=== PATIENT | female | born 1965 | race Caucasian/White ===

== ENCOUNTER → 2017-09-10 | Outpatient (REF) | payer OTHER | LOC: M LAB REF 11:55 | DX: J11.1 Influenza due to unidentified influenza virus with other respiratory manifestations (principal) | CPT/HCPCS: 87633 ==

== ENCOUNTER 2017-11-27 16:37 | Emergency (ER) | payer OTHER ==
[2017-11-27] MEDS: KETOROLAC TROMETHAMINE 10 MG TAB PO (18:39)
== END 2017-11-27 18:53 | disposition home or self-care (01) ==
LOC: M ED 16:37
DX: M54.5 Low back pain (principal); S16.1XXA Strain of muscle, fascia and tendon at neck level, initial encounter; X58.XXXA Exposure to other specified factors, initial encounter; Y92.89 Other specified places as the place of occurrence of the external cause; F17.200 Nicotine dependence, unspecified, uncomplicated; Z87.828 Personal history of other (healed) physical injury and trauma
CPT/HCPCS: 99283

== ENCOUNTER 2017-12-05 13:46 | Emergency (ER) | payer OTHER ==
[2017-12-05] MEDS: traMADol 50 MG TAB PO (14:45)
[2017-12-05] MEDS: METHOCARBAMOL 500 MG TAB PO (14:45)
== END 2017-12-05 14:59 | disposition home or self-care (01) ==
LOC: M ED 13:46
DX: S39.012A Strain of muscle, fascia and tendon of lower back, initial encounter (principal); X50.1XXA Overexertion from prolonged static or awkward postures, initial encounter; Y92.89 Other specified places as the place of occurrence of the external cause; M54.9 Dorsalgia, unspecified; G89.29 Other chronic pain; Z79.899 Other long term (current) drug therapy; Z79.1 Long term (current) use of non-steroidal anti-inflammatories (NSAID)
CPT/HCPCS: 99282

== ENCOUNTER → 2018-04-14 | Outpatient (REF) | payer OTHER ==
[2018-04-14 11:14] LABS: HEMATOCRIT 41.7 % (36.0-47.0); HEMOGLOBIN 13.9 g/dl (12.0-15.5); MEAN CORPUSCULAR HEMOGLOBIN 32.2 pg (27.0-33.0); MEAN CORPUSCULAR HGB CONC 33.3 g/dl (32.0-36.5); MEAN CORPUSCULAR VOLUME 96.5 fl (80.0-96.0); PLATELET COUNT, AUTOMATED 234 10^3/uL (150-450); RED BLOOD COUNT 4.32 10^6/uL (4.00-5.40); RED CELL DISTRIBUTION WIDTH 12.1 % (11.5-14.5); WHITE BLOOD COUNT 6.9 10^3/uL (4.0-10.0)
[2018-04-14 11:50] LABS: ALBUMIN 4.1 GM/DL (3.2-5.2); ALBUMIN/GLOBULIN RATIO 1.41 (1.00-1.93); ALKALINE PHOSPHATASE 85 U/L (45-117); ALT/SGPT 17 U/L (12-78); ANION GAP 5 MEQ/L (8-16); AST/SGOT 12 U/L (7-37); BILIRUBIN,TOTAL 0.4 MG/DL (0.2-1.0); BLOOD UREA NITROGEN 16 MG/DL (7-18); CALCIUM LEVEL 8.7 MG/DL (8.5-10.1); CARBON DIOXIDE LEVEL 29 MEQ/L (21-32); CHLORIDE LEVEL 108 MEQ/L (98-107); CHOLESTEROL LEVEL 234 MG/DL (<200); CHOLESTEROL RISK RATIO 4.875 (<5); CREATININE FOR GFR 0.92 MG/DL (0.55-1.30); FREE T4 0.84 NG/DL (0.76-1.46); GLOMERULAR FILTRATION RATE > 60.0 (>51); GLUCOSE, FASTING 75 MG/DL (70-100); HDL CHOLESTEROL 48 MG/DL (>40); LDL CHOLESTEROL 135 MG/DL (<100); NON-HDL-C 186 MG/DL; POTASSIUM SERUM 4.3 MEQ/L (3.5-5.1); SODIUM LEVEL 142 MEQ/L (136-145); TRIGLYCERIDES LEVEL 254 MG/DL (<150)
== END ==
LOC: M LABDRAW1 10:52
DX: E78.2 Mixed hyperlipidemia (principal); F41.9 Anxiety disorder, unspecified; Z72.0 Tobacco use

== ENCOUNTER → 2018-05-14 | Outpatient (CLI) | payer OTHER | LOC: M PAIN 11:00 | DX: M46.1 Sacroiliitis, not elsewhere classified (principal); M51.26 Other intervertebral disc displacement, lumbar region; M54.17 Radiculopathy, lumbosacral region; F41.9 Anxiety disorder, unspecified; F17.210 Nicotine dependence, cigarettes, uncomplicated; Z98.1 Arthrodesis status; Z79.899 Other long term (current) drug therapy; Z90.49 Acquired absence of other specified parts of digestive tract | CPT/HCPCS: G0463 ==

== ENCOUNTER → 2018-07-15 | Outpatient (CLI) | payer OTHER ==
[~2018-07-15] MED LIST: ALEV220C2 PO; ALLEVE OR; FLEXERIL PO; KETO10TAB PO; LIDO1DIS2 TD; NAPR-239 OR; NAPR-885; ROBA500T PO; TRAM50TA2 OR; TRAM50TA2 PO; ZOLO50TA OR; ZOLP10TA2
--- NOTE | 2018-08-02 23:28 | ECWPNPC ---
PATIENT NAME: SHANELL MENDIETA : 1965 GENDER: FEMALE VISIT DATE: 07/15/2018 DISCHARGE DATE: 07/15/18 174 VISIT LOCKED DATE TIME: PHYSICIAN: DONNA GRIGGS MD RESOURCE: DONNA GRIGGS MD REASON FOR APPOINTMENT 1. W/C BACK HISTORY OF PRESENT ILLNESS HISTORY OF PRESENT ILLNESS: PAIN THE PATIENT DESCRIBES THE PAIN... 53 YEAR OLD FEMALE PATIENT WITH A HISTORY OF CHRONIC BACK PAIN. THE PATIENT DESCRIBES THE PAIN SHARP AND CONTINUOUS WITH A PAIN SCORE OF 6-10/10 DEPENDING ON PHYSICAL ACTIVITY. 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 THE PATIENT STATES THAT HER PAIN IS MAINLY LOCATED AT HER RIGHT LOW BACK AREA. THE PATIENT SAYS SHE HAS SEVERAL SUPPORTS FOR HER BACK IN HER SEAT ON THE BUS AND IN HER CAR. THE PATIENT STATES THAT SHE HAS DIFFICULTY DOING DAILY ACTIVITIES SUCH CLEANING, WORKING, GETTING GROCERIES, AND STANDING UP DUE TO THIS PAIN. PATIENT DENIES UNEXPLAINABLE WEIGHT LOSS, FEVER, CHILLS, NEW CHANGES ON HER URINARY OR BOWEL CONTROL. FALL RISK SCREENING: SCREENING :NO FALLS IN THE PAST YEAR CURRENT MEDICATIONS TAKING LIDOCAINE 5 % PATCH 1 PATCH TO SKIN REMOVE AFTER 12 HOURS EXTERNALLY ONCE A DAY NEEDED TAKING CYCLOBENZAPRINE HCL 10 MG TABLET 1 TABLET ORALLY TID PPRN TAKING NAPROXEN 500 MG TABLET 1 TABLET NEEDED ORALLY EVERY 12 HRS TAKING BACLOFEN 10 MG TABLET 1 TABLET WITH FOOD OR MILK ORALLY DAILY TAKING ZOLOFT 50 MG TABLET 1 TABLET ORALLY ONCE A DAY TAKING AMBIEN 10 MG TABLET 1 TABLET AT BEDTIME NEEDED ORALLY BEFORE BEDTIME TAKING NICOTINE POLACRILEX 2 MG GUM 1 PIECE NEEDED INSTEAD OF SMOKING MOUTH/THROAT 5 TIMES A DAY MEDICATION LIST REVIEWED AND RECONCILED WITH THE PATIENT PAST MEDICAL HISTORY ANXIETY TOBACCO USE LOW BACK PAIN RELATED TO WORKER'S COMP. INJURY JUMPED OVER A PUDDLE IN THE BUS GARAGE MOVED JUST WRONG C PAIN EVER SINCE DOES PT, SEES SOS CERVICAL SPINE FUSION IN 2011 ALLERGIES N.K.D.A. SURGICAL HISTORY C4-C5 FUSION 2011 APPENDECTOMY 1993 C SECTION 1986 FAMILY HISTORY FATHER: ALIVE, DIAGNOSED WITH DIABETES, HEART DISEASE MOTHER: ALIVE 1 SON(S) , 2 DAUGHTER(S) - HEALTHY. PATERNAL AUNTS HAD BREAST CANCERSON HAS RHEUMATOID ARTHRITIS, THYROID ISSUESDAUGHTER THYROID DISEASE. SOCIAL HISTORY GENERAL: TOBACCO USE ARE YOU A:CURRENT SMOKER ARE YOU INTERESTED IN QUITTING?READY TO QUIT PATIENT STATES CUTTING BACK ON CIGARETTES, USING VAPOR AND NICOTINE GUM TO HELP QUIT. COUNSELED THE PATIENT ON TOBACCO USE, CESSATION [id number]/19/2018 HOW MANY CIGARETTES A DAY DO YOU SMOKE?5 OR LESS HOW SOON AFTER YOU WAKE UP DO YOU SMOKE YOUR FIRST CIGARETTE?6-30 MIN HOW OFTEN DO YOU SMOKE CIGARETTES?EVERY DAY PATIENT COUNSELED ON THE DANGERS OF TOBACCO USE AND URGED TO QUIT:07/15/2018 VAPORYES LUNG CANCER SCREENING SMOKING STATUS:CURRENT SMOKER BMI CARE GOAL FOLLOW-UP ABOVE NORMAL BMI FOLLOW-UPDIETARY MANAGEMENT EDUCATION, GUIDANCE, AND COUNSELING, DIETARY NEEDS EDUCATION ALCOHOL SCREENING DID YOU HAVE A DRINK CONTAINING ALCOHOL IN THE PAST YEAR?NO POINTS0 INTERPRETATIONNEGATIVE RECREATIONAL DRUG USE DRUG USE?NO CAFFEINE 2-5/DAY COFFEE, SODA. SEXUAL HX HAD SEX IN THE LAST 12 MONTHS (VAGINAL, ORAL, OR ANAL)?YES WITHMEN ONLY USE PROTECTION?NO HAVE YOU EVER HAD AN STD?NO LMP:MENOP HIV / HEP-C SCREENING HIV TEST OFFERED TO PATIENT:NO DECLINED HEP-C TEST OFFERED TO PATIENT:NO DECLINED JEW NO TEMPLE BELIEFS THAT WOULD IMPACT HEALTH CARE. LANGUAGE ISRAELI. 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 DIET: REGULAR. EXERCISE: ACTIVE THROUGH WORK AND AT HOME. MARITAL STATUS: .. OTHERS AT HOME: BOYFRIEND. PAIN CLINIC PFS, CLERGY, PUBLIC HEALTH REFERRALS HAS THE PATIENT BEEN EDUCATED REGARDING HIS/HER PLAN OF CARE?YES HAS THE PATIENT BEEN EDUCATED REGARDING PAIN, THE RISK FOR PAIN, THE IMPORTANCE OF EFFECTIVE PAIN MANAGEMENT, AND THE PAIN ASSESSMENT PROCESS?YES ADVANCE DIRECTIVE ADVANCE DIRECTIVE DISCUSSED WITH PATIENT:YES HCP - JUDY BROTHERS (DAUGHTER) REVIEWED WITH PATIENT 05/14/18 1142 JSREVIEWED WITH PATIENT 07/15/18 1625 JS. HOSPITALIZATION/MAJOR DIAGNOSTIC PROCEDURE CHILDBIRTH X2 REVIEW OF SYSTEMS REVIEWED BY: PROVIDER: DONNA GRIGGS MD . CONSTITUTIONAL: ANY CHANGE IN YOUR MEDICAL CONDITION? NO . CHILLS NO . FEVER NO . INFECTION: DO YOU HAVE NEW INFECTIONS? NO . DO YOU HAVE HISTORY OF MRSA? NO . MUSCULOSKELETAL: ANY NEW PATTERNS OF PAIN OR NUMBNESS? YES, PATIENT STATES A NEW SHARP PAIN TO LOWER BACK. STATES IT STARTED YESTERDAY MORNING WHEN GETTING OUT OF BED. STATES IT FELT LIKE A LIGHTENING BOLT. THE PAIN WAS SO SEVERE THAT IT BROUGHT HER TO HER KNEES . GASTROENTEROLOGY: ANY NEW CHANGE IN BOWEL CONTROL? NO . GENITOURINARY: ANY NEW CHANGE IN BLADDER CONTROL? NO . IS THERE A CHANCE YOU COULD BE ? NO . HEMATOLOGY/LYMPH: DO YOU TAKE ANY BLOOD THINNERS? (FOR EXAMPLE- COUMADIN, PLAVIX, AGGRENOX, PLATEL, PRADAXA, OR XARELTO) NO . WHEN WAS YOUR LAST DOSE? DATE: TIME: . NEUROLOGY: HAVE YOU FALLEN IN THE PAST 6 MONTHS? NO . ANY NEW EXTREMITY NUMBNESS OR WEAKNESS? NO . CARDIOLOGY: DO YOU HAVE A PACEMAKER OR DEFIBRILLATOR? NO . RESPIRATORY: HAVE YOU BEEN SICK IN THE PAST WEEK? NO . FEVER NO . FLU LIKE SYMPTOMS? NO . COUGH NO . INTEGUMENTARY: DO YOU HAVE ANY RASHES OR OPEN SORES? NO . ALLERGIC/IMMUNO: ARE YOU ALLERGIC TO SHELLFISH OR IV DYE? NO . ANY NEW ALLERGIES? NO . PSYCHIATRIC: DO YOU HAVE THOUGHTS OF HURTING YOURSELF OR SOMEONE ELSE? NO . ARE YOU ABUSED, NEGLECTED, OR IN AN UNSAFE ENVIRONMENT? NO . ENDOCRINOLOGY: ARE YOU DIABETIC? NO . OTHER: DO YOU NEED ANY PRESCRIPTIONS? NO . IF YES, PLEASE LIST: ____ . ANY NEW PROBLEMS WITH YOUR MEDICATIONS? NO . WHEN DID YOU LAST EAT? ____ . WHEN DID YOU LAST DRINK? ____ . WHAT DID YOU LAST DRINK? ____ . NAME OF PERSON DRIVING YOU HOME? ____ . DO YOU HAVE ANY OTHER QUESTIONS OR CONCERNS YES, STATES NEW SHARP PAIN SINCE YESTERDAY MORNING, LEAVES FOR [place] FRIDAY AND WILL BE GONE FOR 2 WEEKS . VITAL SIGNS WT 140.4 LBS, HT 62 IN, BMI 25.68 INDEX, BP 135/73 MM HG, HR 77 /MIN, RR 18 /MIN, TEMP 96.0 F, OXYGEN SAT % 98%, SAFE IN ENV? (Y/N) YES, NA INITIALS AW 1620, REVIEWED BY: JS. EXAMINATION GENERAL EXAMINATION: PATIENT IS ALERT O X 3 AND COOPERATIVE. TENDERNESS IN THE RIGHT LOW BACK AREA OVER THE SACROILIAC JOINT. RIGHT LEG IS WEAKER AT FLEXION. FABERE TEST OF THE LEFT SIDE CAUSES INCREASED PAIN ON THE RIGHT SIDE. PATIENT HAS DIFFICULTY SITTING UP FROM SUPINE POSITION. PRESENCE OF BANDS OF TISSUE AND TRIGGER POINTS WITH RESTRICTION OF MOVEMENT OF THE BACK. MRI OF THE LUMBAR SPINE DONE ON 03/19/2018 SHOWS FACET ARTHROPATHY CHANGES AT MULTIPLE LEVELS AND A DISC PROTRUSION AT L5-S1. ASSESSMENTS MYALGIA, OTHER SITE - M79.18 (PRIMARY) SACROILIITIS, NOT ELSEWHERE CLASSIFIED - M46.1 LUMBAGO DUE TO DISPLACEMENT OF INTERVERTEBRAL DISC - M51.26 LOW BACK PAIN - M54.5 OTHER CHRONIC PAIN - G89.29 TREATMENT MYALGIA, OTHER SITE CLINICAL NOTES: WE DISCUSSED SEVERAL ISSUES WITH MRS. MENDIETA'S PAIN MANAGEMENT CASE. DUE TO THE PRESENCE OF TRIGGER POINTS, BANDS OF TISSUE, AND RESTRICTION OF MOVEMENT, I WOULD LIKE TO MOVE FORWARD WITH A TRIGGER POINT INJECTION AT THIS TIME. WE DISCUSSED THE BENEFITS, RISKS, AND ALTERNATIVES OF THE INJECTION AND THE PATIENT WOULD LIKE TO PROCEED. I AM LOOKING TO IMPROVE THE PATIENT'S MOBILITY AND FUNCTIONALITY FOR SEVERAL MONTHS AFTER THIS INJECTION. THE PATIENT WILL FOLLOW UP IN 2 MONTHS. INSTRUCTIONS WERE GIVEN, QUESTIONS WERE ANSWERED, PATIENT REPORTS UNDERSTANDING AND AGREES WITH THE PLAN. I, SONNY OLIVAREZ, DOCUMENTED THE ABOVE INFORMATION ACTING A SCRIBE FOR DR. GRIGGS. I HAVE REVIEWED THE ABOVE DOCUMENT, WRITTEN BY SONNY MARTIN AND I VERIFY THAT IT IS ACCURATE. OTHERS NOTES: TRIGGER POINT INJECTION MATERIAL WAS PRINTED,TRIGGER POINT INJECTION: YOUR EXPERIENCE MATERIAL WAS PRINTED. PROCEDURES PN WORKMANS' COMP OPINION IN YOUR OPINION, WAS THE INCIDENT THAT THE PATIENT DESCRIBED THE COMPETENT MEDICAL CAUSE OF THIS INJURY/ILLNESS? YES ARE THE PATIENT'S COMPLAINTS CONSISTENT WITH HIS/HER HISTORY OF THE INJURY/ILLNESS? YES IS THE PATIENT'S HISTORY OF THE INJURY/ILLNESS CONSISTENT WITH YOUR OBJECTIVE FINDING? YES WHAT IS THE PERCENTAGE OF TEMPORARY IMPAIRMENT? MODERATE TO MARKED = 66.7% IS THE PATIENT WORKING? YES DOCTOR ON SITE: DONNA MARISCAL MD PREVENTIVE MEDICINE PAIN CLINIC TEACHING: PROCEDURE TEACHING PRINTED INFORMATION ON TRIGGER POINT INJECTIONS GIVEN TO AND REVIEWED WITH PT ALONG WITH PRE-PROCEDURE INSTRUCTIONS AND PT VERBALIZED UNDERSTANDING. AD. PROCEDURE CODES FA211 ESTABILISHED PATIENT [facility] FACILITY CHARGE G8427 CURRENT MEDS W/DOSAGES DOCUMENTED G8730 PAIN ASSESS POS TOOL F/U PLAN DOC DISPOSITION & COMMUNICATION FOLLOW UP 2 MONTHS ELECTRONICALLY SIGNED BY DONNA GRIGGS MD, MD ON 08/02/2018 AT 03:14 PM EST DISCLAIMER : THIS IS A VISIT SUMMARY EXTRACTED FROM THE [employer] CHART. IT IS NOT A COPY OF THE [employer] PROGRESS NOTE. MARIANN
== END ==
LOC: M PAIN 16:15
PROVIDERS: ATTEND Anesthesiology
DX: G89.29 Other chronic pain (principal); M79.18 Myalgia, other site; M46.1 Sacroiliitis, not elsewhere classified; M51.26 Other intervertebral disc displacement, lumbar region; F41.9 Anxiety disorder, unspecified; Z98.1 Arthrodesis status; F17.210 Nicotine dependence, cigarettes, uncomplicated

== ENCOUNTER → 2018-08-17 | Outpatient (CLI) | payer OTHER ==
[~2018-08-17] MED LIST changes: +BUPIVACAINE HCL 0.25% 30 ML VIAL As Ordered ONE; +ISOVUE-M 300 61% 15ML VIAL (Q9967) As Ordered ONE; +LIDOCAINE 1% SDV INJ 30 ML VIAL As Ordered ONE; +TRIAMCINOLONE ACETONIDE SUSP 40 MG/ML VIAL (J3301) As Ordered ONE
--- NOTE | 2018-08-17 10:41 | REP ---
PARTIAL SI JOINT SERIES: Four views. HISTORY: SI joint injection for pain. 35 seconds of fluoroscopy time is reported. FINDINGS: A sequence of four last image hold fluoroscopically obtained spot radiographs document SI joint injection procedure. Electronically Signed by Faizan Sandy MD 08/17/2018 10:43 A
--- NOTE | 2018-08-31 00:29 | ECWPNPC ---
PATIENT NAME: SHANELL MENDIETA : 1965 GENDER: FEMALE VISIT DATE: 08/17/2018 DISCHARGE DATE: 08/17/18 1029 VISIT LOCKED DATE TIME: PHYSICIAN: DONNA GRIGGS MD RESOURCE: DONNA GRIGGS MD REASON FOR APPOINTMENT 1. (R) SIJ W/C HISTORY OF PRESENT ILLNESS HISTORY OF PRESENT ILLNESS: PAIN THE PATIENT DESCRIBES THE PAIN... FALL RISK SCREENING: SCREENING :NO FALLS IN THE PAST YEAR CURRENT MEDICATIONS TAKING LIDOCAINE 5 % PATCH 1 PATCH TO SKIN REMOVE AFTER 12 HOURS EXTERNALLY ONCE A DAY NEEDED, NOTES: FEW DAYS AGO TAKING CYCLOBENZAPRINE HCL 10 MG TABLET 1 TABLET ORALLY TID PPRN, NOTES: 08/16/18@2200 TAKING NAPROXEN 500 MG TABLET 1 TABLET NEEDED ORALLY EVERY 12 HRS, NOTES: 08/16/18@2199 TAKING BACLOFEN 10 MG TABLET 1 TABLET WITH FOOD OR MILK ORALLY DAILY, NOTES: 2 DAYS AGO TAKING NICOTINE POLACRILEX 2 MG GUM 1 PIECE NEEDED INSTEAD OF SMOKING MOUTH/THROAT 5 TIMES A DAY, NOTES: 08/16/18@1800 TAKING AMBIEN 10 MG TABLET 1 TABLET AT BEDTIME NEEDED ORALLY BEFORE BEDTIME, NOTES: 08/16/18@2199 NOT-TAKING ZOLOFT 50 MG TABLET 1 TABLET ORALLY ONCE A DAY, NOTES: 08/16/18@2199 MEDICATION LIST REVIEWED AND RECONCILED WITH THE PATIENT PAST MEDICAL HISTORY ANXIETY TOBACCO USE LOW BACK PAIN RELATED TO WORKER'S COMP. INJURY JUMPED OVER A PUDDLE IN THE BUS GARAGE MOVED JUST WRONG C PAIN EVER SINCE DOES PT, SEES SOS CERVICAL SPINE FUSION IN 2011 ALLERGIES N.K.D.A. SURGICAL HISTORY C4-C5 FUSION 2012 APPENDECTOMY 1993 C SECTION 1986 FAMILY HISTORY FATHER: ALIVE, DIAGNOSED WITH DIABETES, HEART DISEASE MOTHER: ALIVE 1 SON(S) , 2 DAUGHTER(S) - HEALTHY. PATERNAL AUNTS HAD BREAST CANCERSON HAS RHEUMATOID ARTHRITIS, THYROID ISSUESDAUGHTER THYROID DISEASE. SOCIAL HISTORY GENERAL: TOBACCO USE ARE YOU A:CURRENT SMOKER ARE YOU INTERESTED IN QUITTING?READY TO QUIT PATIENT STATES CUTTING BACK ON CIGARETTES, USING VAPOR AND NICOTINE GUM TO HELP QUIT. COUNSELED THE PATIENT ON TOBACCO USE, CESSATION [id number]/21/2019 HOW MANY CIGARETTES A DAY DO YOU SMOKE?5 OR LESS HOW SOON AFTER YOU WAKE UP DO YOU SMOKE YOUR FIRST CIGARETTE?6-30 MIN HOW OFTEN DO YOU SMOKE CIGARETTES?EVERY DAY PATIENT COUNSELED ON THE DANGERS OF TOBACCO USE AND URGED TO QUIT:08/17/2018 VAPORYES LUNG CANCER SCREENING SMOKING STATUS:CURRENT SMOKER BMI CARE GOAL FOLLOW-UP ABOVE NORMAL BMI FOLLOW-UPDIETARY MANAGEMENT EDUCATION, GUIDANCE, AND COUNSELING, DIETARY NEEDS EDUCATION ALCOHOL SCREENING DID YOU HAVE A DRINK CONTAINING ALCOHOL IN THE PAST YEAR?NO POINTS0 INTERPRETATIONNEGATIVE RECREATIONAL DRUG USE DRUG USE?NO CAFFEINE 2-5/DAY COFFEE, SODA. SEXUAL HX HAD SEX IN THE LAST 12 MONTHS (VAGINAL, ORAL, OR ANAL)?YES WITHMEN ONLY USE PROTECTION?NO HAVE YOU EVER HAD AN STD?NO LMP:MENOP HIV / HEP-C SCREENING HIV TEST OFFERED TO PATIENT:NO DECLINED HEP-C TEST OFFERED TO PATIENT:NO DECLINED CHRISTIAN NO CONFUCIANISM BELIEFS THAT WOULD IMPACT HEALTH CARE. LANGUAGE SOUTH AFRICAN. 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 DIET: REGULAR. EXERCISE: ACTIVE THROUGH WORK AND AT HOME. MARITAL STATUS: .. OTHERS AT HOME: BOYFRIEND. PAIN CLINIC PFS, CLERGY, PUBLIC HEALTH REFERRALS HAS THE PATIENT BEEN EDUCATED REGARDING HIS/HER PLAN OF CARE?YES HAS THE PATIENT BEEN EDUCATED REGARDING PAIN, THE RISK FOR PAIN, THE IMPORTANCE OF EFFECTIVE PAIN MANAGEMENT, AND THE PAIN ASSESSMENT PROCESS?YES ADVANCE DIRECTIVE ADVANCE DIRECTIVE DISCUSSED WITH PATIENT:YES HCP - JUDY BROTHERS (DAUGHTER) REVIEWED WITH PATIENT 05/14/18 1142 JSREVIEWED WITH PATIENT 07/15/18 1625 JS. HOSPITALIZATION/MAJOR DIAGNOSTIC PROCEDURE CHILDBIRTH X2 REVIEW OF SYSTEMS REVIEWED BY: PROVIDER: . CONSTITUTIONAL: ANY CHANGE IN YOUR MEDICAL CONDITION? NO . CHILLS NO . FEVER NO . INFECTION: DO YOU HAVE NEW INFECTIONS? NO . DO YOU HAVE HISTORY OF MRSA? NO . MUSCULOSKELETAL: ANY NEW PATTERNS OF PAIN OR NUMBNESS? NO . GASTROENTEROLOGY: ANY NEW CHANGE IN BOWEL CONTROL? NO . GENITOURINARY: ANY NEW CHANGE IN BLADDER CONTROL? NO . IS THERE A CHANCE YOU COULD BE ? NO . HEMATOLOGY/LYMPH: DO YOU TAKE ANY BLOOD THINNERS? (FOR EXAMPLE- COUMADIN, PLAVIX, AGGRENOX, PLATEL, PRADAXA, OR XARELTO) NO . WHEN WAS YOUR LAST DOSE? DATE: TIME: . NEUROLOGY: HAVE YOU FALLEN IN THE PAST 12 MONTHS? NO . ANY NEW EXTREMITY NUMBNESS OR WEAKNESS? NO . CARDIOLOGY: DO YOU HAVE A PACEMAKER OR DEFIBRILLATOR? NO . RESPIRATORY: HAVE YOU BEEN SICK IN THE PAST WEEK? NO . FEVER NO . FLU LIKE SYMPTOMS? NO . COUGH NO . INTEGUMENTARY: DO YOU HAVE ANY RASHES OR OPEN SORES? NO . ALLERGIC/IMMUNO: ARE YOU ALLERGIC TO IV DYE? NO . ANY NEW ALLERGIES? NO . PSYCHIATRIC: DO YOU HAVE THOUGHTS OF HURTING YOURSELF OR SOMEONE ELSE? NO . ARE YOU ABUSED, NEGLECTED, OR IN AN UNSAFE ENVIRONMENT? NO . ENDOCRINOLOGY: ARE YOU DIABETIC? NO . OTHER: DO YOU NEED ANY PRESCRIPTIONS? NO . IF YES, PLEASE LIST: ____ . ANY NEW PROBLEMS WITH YOUR MEDICATIONS? NO . WHEN DID YOU LAST EAT? ____08/16/18 . WHEN DID YOU LAST DRINK? ____08/16/18 . WHAT DID YOU LAST DRINK? ____[place] . NAME OF PERSON DRIVING YOU HOME? ____JESUS PHAM JR . DO YOU HAVE ANY OTHER QUESTIONS OR CONCERNS YES, WHILE IN [place] WHEN [place]- IT MADE MR DIZZY AND VOMIT . VITAL SIGNS WT 143.2 LBS, HT 62 IN, BMI 26.19 INDEX, BP 99/62 MM HG, REPEAT BP 112/61 MM HG, HR 84 /MIN, RR 16 /MIN, TEMP 97.4 F, OXYGEN SAT % 98%, SAFE IN ENV? (Y/N) Y, NA INITIALS GA 08:51, REVIEWED BY: HUSAM. ASSESSMENTS SACROILIITIS, NOT ELSEWHERE CLASSIFIED - M46.1 (PRIMARY) TREATMENT SACROILIITIS, NOT ELSEWHERE CLASSIFIED [facility] GUIDANCE (PAIN)[id number] PROCEDURES PN SI PRE PROCEDURE DIAGNOSIS SACROILIITIS, SACROILIAC JOINT DYSFUNCTION POST PROCEDURE DIAGNOSIS SACROILIITIS, SACROILIAC JOINT DYSFUNCTION PROCEDURE RIGHT SACROILIAC JOINT BLOCK SURGEON DR. DONNA GRIGGS NEW ACCOUNT INTERVIEWER NONE ANESTHESIA LOCAL PRE PROCEDURE NOTE PATIENT WITH HISTORY OF CHRONIC LOW BACK PAIN. I EVALUATED THE PATIENT AND REVIEWED THE CHART. I WENT OVER THE RISKS, ALTERNATIVES, AND BENEFITS ASSOCIATED WITH THIS PROCEDURE. THE PATIENT WOULD LIKE TO PROCEED AND GAVE CONSENT TO PERFORM THE PROCEDURE. THE PATIENT DENIES UNEXPLAINABLE WEIGHT LOSS, FEVER, CHILLS, OR NEW CHANGES IN URINARY OR BOWEL CONTROL DESCRIPTION OF PROCEDURE THE PATIENT WAS BROUGHT TO THE PROCEDURE ROOM AND PLACED IN THE PRONE POSITION. THE LUMBOSACRAL AREA WAS CLEANED WITH CHLORAPREP SOLUTION AND DRAPED ASEPTICALLY. THE PROCEDURE WAS DONE UNDER STERILE CONDITIONS. I CHECKED LATERALITY AND THE LEVEL WHERE THE PROCEDURE WAS GOING TO BE PERFORMED WITH THE PATIENT AND THE SUPPORTING STAFF AT THE MOMENT OF THE TIME OUT IN THE PROCEDURE ROOM. UNDER FLUOROSCOPIC GUIDANCE, TARGET POINT WAS SELECTED AT THE LOWER BORDER OF THE RIGHT SACROILIAC JOINT. TARGET POINT WAS SELECTED AFTER MEDIAL ROTATION AND TILT OF THE MAGNIFIER OF THE C-ARM. LIDOCAINE WAS USED TO NUMB THE SKIN AND SUBCUTANEOUS TISSUE BELOW IT. A SPINAL NEEDLE, 22-GAUGE, WAS ADVANCED UNDER FLUOROSCOPIC GUIDANCE AND FOLLOWING PATIENT FEEDBACK UNTIL THE TARGET AREA WAS TOUCHED. THE POSITION OF THE NEEDLE WAS VERIFIED WITH AP AND LATERAL VIEWS. AFTER PROPER POSITION OF THE NEEDLE WAS ACHIEVED, ISOVUE M DYE 30%, 0.25 ML, WAS INJECTED SHOWING SPREAD OF THE DYE. THEN, A SOLUTION OF 20 MG OF KENALOG WAS INJECTED IN RIGHT JOINT WITH 3 ML OF BUPIVACAINE 0.125%. THERE WAS NO EVIDENCE OF BLOOD, PARESTHESIA OR CEREBROSPINAL FLUID DURING THE PROCEDURE. THE PATIENT WAS SENT TO THE RECOVERY ROOM. THE PATIENT WAS MOVING THE EXTREMITIES AND DOING WELL. THERE WAS NO COMPLICATION DURING THE PROCEDURE. FLUOROSCOPY TIME WAS 35 SECONDS POST PROCEDURE NOTE THE PATIENT WILL BE SEEN IN A FOLLOW UP IN THE NEXT FEW WEEKS. INSTRUCTIONS WERE GIVEN, QUESTIONS WERE ANSWERED, AND THE PATIENT EXPRESSED UNDERSTANDING AND AGREED WITH THE PLAN. I, SONNY OLIVAREZ, DOCUMENTED THE ABOVE INFORMATION ACTING A SCRIBE FOR DR. GRIGGS. I HAVE REVIEWED THE ABOVE DOCUMENT, WRITTEN BY SONNY MARTIN AND I VERIFY THAT IT IS ACCURATE. PN WORKMANS' COMP OPINION IN YOUR OPINION, WAS THE INCIDENT THAT THE PATIENT DESCRIBED THE COMPETENT MEDICAL CAUSE OF THIS INJURY/ILLNESS? YES ARE THE PATIENT'S COMPLAINTS CONSISTENT WITH HIS/HER HISTORY OF THE INJURY/ILLNESS? YES IS THE PATIENT'S HISTORY OF THE INJURY/ILLNESS CONSISTENT WITH YOUR OBJECTIVE FINDING? YES WHAT IS THE PERCENTAGE OF TEMPORARY IMPAIRMENT? MODERATE TO MARKED = 66.7% IS THE PATIENT WORKING? YES DOCTOR ON SITE: DONNA MARISCAL MD PROCEDURE CODES 6045F RADXPS IN END [id number] PXD [id number] INJECT SACROILIAC JOINT, MODIFIERS: RT DISPOSITION & COMMUNICATION FOLLOW UP 3 WEEKS ELECTRONICALLY SIGNED BY DONNA GRIGGS MD, MD ON 08/30/2018 AT 06:09 PM EST DISCLAIMER : THIS IS A VISIT SUMMARY EXTRACTED FROM THE [employer] CHART. IT IS NOT A COPY OF THE [employer] PROGRESS NOTE. MTDD
== END ==
LOC: M PAIN 08:30
PROVIDERS: ATTEND Anesthesiology
DX: G89.29 Other chronic pain (principal); M46.1 Sacroiliitis, not elsewhere classified; M53.88 Other specified dorsopathies, sacral and sacrococcygeal region; F41.9 Anxiety disorder, unspecified; F17.210 Nicotine dependence, cigarettes, uncomplicated; Z79.899 Other long term (current) drug therapy
CPT/HCPCS: G0260; J3301; Q9967

== ENCOUNTER → 2018-08-31 | Outpatient (CLI) | payer OTHER ==
[~2018-08-31] MED LIST changes: -BUPIVACAINE HCL 0.25% 30 ML VIAL As Ordered ONE; -ISOVUE-M 300 61% 15ML VIAL (Q9967) As Ordered ONE; -LIDOCAINE 1% SDV INJ 30 ML VIAL As Ordered ONE; -TRIAMCINOLONE ACETONIDE SUSP 40 MG/ML VIAL (J3301) As Ordered ONE
--- NOTE | 2018-09-12 23:44 | ECWPNPC ---
PATIENT NAME: SHANELL MENDIETA : 1965 GENDER: FEMALE VISIT DATE: 08/31/2018 DISCHARGE DATE: 08/31/18 1102 VISIT LOCKED DATE TIME: PHYSICIAN: DONNA GRIGGS MD RESOURCE: DONNA GRIGGS MD REASON FOR APPOINTMENT 1. W/C, POST PROC HISTORY OF PRESENT ILLNESS HISTORY OF PRESENT ILLNESS: PAIN THE PATIENT DESCRIBES THE PAIN... 53 YEAR OLD FEMALE PATIENT WITH A HISTORY OF CHRONIC LOW BACK PAIN. THE PATIENT DESCRIBES THE PAIN SORE WITH A PAIN SCORE OF 2-6/10 DEPENDING ON PHYSICAL ACTIVITY. 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 THE PATIENT WAS HERE FOR A SACROILIAC JOINT INJECTION ON 08/17/2018 AND REPORTS HAVING MORE THAN 50% PAIN RELIEF. THE PATIENT SAYS THAT SHE HAS BEEN ABLE TO INCREASE HER MOBILITY AND FUNCTIONALITY SINCE HAVING THE INJECTION. PATIENT DENIES UNEXPLAINABLE WEIGHT LOSS, FEVER, CHILLS, NEW CHANGES ON HER URINARY OR BOWEL CONTROL. FALL RISK SCREENING: SCREENING :NO FALLS IN THE PAST YEAR CURRENT MEDICATIONS TAKING LIDOCAINE 5 % PATCH 1 PATCH TO SKIN REMOVE AFTER 12 HOURS EXTERNALLY ONCE A DAY NEEDED TAKING CYCLOBENZAPRINE HCL 10 MG TABLET 1 TABLET ORALLY TID PPRN TAKING NAPROXEN 500 MG TABLET 1 TABLET NEEDED ORALLY EVERY 12 HRS TAKING AMBIEN 10 MG TABLET 1 TABLET AT BEDTIME NEEDED ORALLY BEFORE BEDTIME TAKING NICOTROL 10 MG INHALER 1 CARTRIDGE NEEDED INHALATION 16 TIME(S) A DAY TAKING ZOLOFT 50 MG TABLET 1 TABLET ORALLY ONCE A DAY NOT-TAKING BACLOFEN 10 MG TABLET 1 TABLET WITH FOOD OR MILK ORALLY DAILY NOT-TAKING NICOTINE POLACRILEX 2 MG GUM 1 PIECE NEEDED INSTEAD OF SMOKING MOUTH/THROAT 5 TIMES A DAY MEDICATION LIST REVIEWED AND RECONCILED WITH THE PATIENT PAST MEDICAL HISTORY ANXIETY TOBACCO USE LOW BACK PAIN RELATED TO WORKER'S COMP. INJURY JUMPED OVER A PUDDLE IN THE BUS GARAGE MOVED JUST WRONG C PAIN EVER SINCE DOES PT, SEES SOS CERVICAL SPINE FUSION IN 2011 ALLERGIES N.K.D.A. SURGICAL HISTORY C4-C5 FUSION 2012 APPENDECTOMY 1994 C SECTION 1986 FAMILY HISTORY FATHER: ALIVE, DIAGNOSED WITH DIABETES, HEART DISEASE MOTHER: ALIVE 1 SON(S) , 2 DAUGHTER(S) - HEALTHY. PATERNAL AUNTS HAD BREAST CANCERSON HAS RHEUMATOID ARTHRITIS, THYROID ISSUESDAUGHTER THYROID DISEASE. SOCIAL HISTORY GENERAL: TOBACCO USE ARE YOU A:CURRENT SMOKER ARE YOU INTERESTED IN QUITTING?READY TO QUIT PATIENT STATES CUTTING BACK ON CIGARETTES, USING NICOTENE VAPOR. STATES THIS IS HELPING PREVIOUS QUIT ATTEMPTS?YES, MORE THAN 6 MONTHS AGO. COUNSELED THE PATIENT ON TOBACCO USE, CESSATION [id number] HOW MANY CIGARETTES A DAY DO YOU SMOKE?5 OR LESS HOW SOON AFTER YOU WAKE UP DO YOU SMOKE YOUR FIRST CIGARETTE?6-30 MIN HOW OFTEN DO YOU SMOKE CIGARETTES?SOME DAYS, BUT NOT EVERY DAY PATIENT COUNSELED ON THE DANGERS OF TOBACCO USE AND URGED TO QUIT:08/31/2018 VAPORYES LUNG CANCER SCREENING SMOKING STATUS:CURRENT SMOKER BMI CARE GOAL FOLLOW-UP ABOVE NORMAL BMI FOLLOW-UPDIETARY MANAGEMENT EDUCATION, GUIDANCE, AND COUNSELING, DIETARY NEEDS EDUCATION ALCOHOL SCREENING DID YOU HAVE A DRINK CONTAINING ALCOHOL IN THE PAST YEAR?NO POINTS0 INTERPRETATIONNEGATIVE RECREATIONAL DRUG USE DRUG USE?NO CAFFEINE CAFFEINE USE?YES HOW OFTEN AND HOW MUCH? 2 CUPS COFFEE AND 1 SODA/DAY SEXUAL HX HAD SEX IN THE LAST 12 MONTHS (VAGINAL, ORAL, OR ANAL)?YES WITHMEN ONLY USE PROTECTION?NO HAVE YOU EVER HAD AN STD?NO LMP:MENOP HIV / HEP-C SCREENING HIV TEST OFFERED TO PATIENT:NO DECLINED HEP-C TEST OFFERED TO PATIENT:NO DECLINED YAZDANISM [id number] MUSLIM LANGUAGE WELSH. 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 DIET: REGULAR. EXERCISE: ACTIVE THROUGH WORK AND AT HOME. MARITAL STATUS: .. OTHERS AT HOME: BOYFRIEND. PAIN CLINIC PFS, CLERGY, PUBLIC HEALTH REFERRALS HAS THE PATIENT BEEN EDUCATED REGARDING HIS/HER PLAN OF CARE?YES HAS THE PATIENT BEEN EDUCATED REGARDING PAIN, THE RISK FOR PAIN, THE IMPORTANCE OF EFFECTIVE PAIN MANAGEMENT, AND THE PAIN ASSESSMENT PROCESS?YES ADVANCE DIRECTIVE ADVANCE DIRECTIVE DISCUSSED WITH PATIENT:YES HCP - JUDY BROTHERS (DAUGHTER) REVIEWED WITH PATIENT 05/14/18 1142 JSREVIEWED WITH PATIENT 07/15/18 1625 JS08/31/18 REVIEWED WITH PT. AD. HOSPITALIZATION/MAJOR DIAGNOSTIC PROCEDURE CHILDBIRTH X2 X 1 REVIEW OF SYSTEMS REVIEWED BY: PROVIDER: DONNA GRIGGS MD . CONSTITUTIONAL: ANY CHANGE IN YOUR MEDICAL CONDITION? NO . CHILLS NO . FEVER NO . INFECTION: DO YOU HAVE NEW INFECTIONS? NO . DO YOU HAVE HISTORY OF MRSA? NO . MUSCULOSKELETAL: ANY NEW PATTERNS OF PAIN OR NUMBNESS? NO . GASTROENTEROLOGY: ANY NEW CHANGE IN BOWEL CONTROL? NO . GENITOURINARY: ANY NEW CHANGE IN BLADDER CONTROL? NO . IS THERE A CHANCE YOU COULD BE ? NO . HEMATOLOGY/LYMPH: DO YOU TAKE ANY BLOOD THINNERS? (FOR EXAMPLE- COUMADIN, PLAVIX, AGGRENOX, PLATEL, PRADAXA, OR XARELTO) NO . WHEN WAS YOUR LAST DOSE? DATE: TIME: . NEUROLOGY: HAVE YOU FALLEN IN THE PAST 12 MONTHS? YES, FELL LAST MON. NIGHT, "PASSED OUT" WHEN GETTING UP TO GOT THE THE BATHROOM . ANY NEW EXTREMITY NUMBNESS OR WEAKNESS? NO . CARDIOLOGY: DO YOU HAVE A PACEMAKER OR DEFIBRILLATOR? NO . RESPIRATORY: HAVE YOU BEEN SICK IN THE PAST WEEK? NO . FEVER NO . FLU LIKE SYMPTOMS? NO . COUGH NO . INTEGUMENTARY: DO YOU HAVE ANY RASHES OR OPEN SORES? NO . ALLERGIC/IMMUNO: ARE YOU ALLERGIC TO IV DYE? NO . ANY NEW ALLERGIES? NO . PSYCHIATRIC: DO YOU HAVE THOUGHTS OF HURTING YOURSELF OR SOMEONE ELSE? NO . ARE YOU ABUSED, NEGLECTED, OR IN AN UNSAFE ENVIRONMENT? NO . ENDOCRINOLOGY: ARE YOU DIABETIC? NO . OTHER: DO YOU NEED ANY PRESCRIPTIONS? NO . IF YES, PLEASE LIST: ____ . ANY NEW PROBLEMS WITH YOUR MEDICATIONS? NO . WHEN DID YOU LAST EAT? ____ . WHEN DID YOU LAST DRINK? ____ . WHAT DID YOU LAST DRINK? ____ . NAME OF PERSON DRIVING YOU HOME? ____ . DO YOU HAVE ANY OTHER QUESTIONS OR CONCERNS NO . VITAL SIGNS WT 143.6 LBS, HT 62 IN, BMI 26.26 INDEX, BP 124/69 MM HG, HR 80 /MIN, RR 16 /MIN, TEMP 98.2 F, OXYGEN SAT % 100%, SAFE IN ENV? (Y/N) Y, NA INITIALS SC 10:20, REVIEWED BY: AD. EXAMINATION GENERAL EXAMINATION: PATIENT IS ALERT O X 3 AND COOPERATIVE. ASSESSMENTS SACROILIITIS, NOT ELSEWHERE CLASSIFIED - M46.1 (PRIMARY) TREATMENT SACROILIITIS, NOT ELSEWHERE CLASSIFIED CLINICAL NOTES: WE DISCUSSED SEVERAL ISSUES WITH MRS. MENDIETA'S PAIN MANAGEMENT CASE. THE PATIENT REPORTS THAT SHE IS DOING WELL, SO WE WILL NOT BE MOVING FORWARD WITH ANY INTERVENTIONS AT THIS TIME. THE PATIENT WILL FOLLOW UP IN 3 MONTHS. INSTRUCTIONS WERE GIVEN, QUESTIONS WERE ANSWERED, PATIENT REPORTS UNDERSTANDING AND AGREES WITH THE PLAN. I, SONNY OLIVAREZ, DOCUMENTED THE ABOVE INFORMATION ACTING A SCRIBE FOR DR. GRIGGS. I HAVE REVIEWED THE ABOVE DOCUMENT, WRITTEN BY SONNY ELLISIBCathy AND I VERIFY THAT IT IS ACCURATE. PROCEDURES PN WORKMANS' COMP OPINION IN YOUR OPINION, WAS THE INCIDENT THAT THE PATIENT DESCRIBED THE COMPETENT MEDICAL CAUSE OF THIS INJURY/ILLNESS? YES ARE THE PATIENT'S COMPLAINTS CONSISTENT WITH HIS/HER HISTORY OF THE INJURY/ILLNESS? YES IS THE PATIENT'S HISTORY OF THE INJURY/ILLNESS CONSISTENT WITH YOUR OBJECTIVE FINDING? YES WHAT IS THE PERCENTAGE OF TEMPORARY IMPAIRMENT? MODERATE TO MARKED = 66.7% IS THE PATIENT WORKING? YES DOCTOR ON SITE: DONNA MARISCAL MD PROCEDURE CODES FA211 ESTABILISHED PATIENT [facility] FACILITY CHARGE G8427 CURRENT MEDS W/DOSAGES DOCUMENTED G8730 PAIN ASSESS POS TOOL F/U PLAN DOC DISPOSITION & COMMUNICATION FOLLOW UP 3 MONTHS ELECTRONICALLY SIGNED BY DONNA GRIGGS MD, MD ON 09/12/2018 AT 05:24 PM EST DISCLAIMER : THIS IS A VISIT SUMMARY EXTRACTED FROM THE [employer] CHART. IT IS NOT A COPY OF THE [employer] PROGRESS NOTE. MARIANN
== END ==
LOC: M PAIN 10:00
PROVIDERS: ATTEND Anesthesiology
DX: M46.1 Sacroiliitis, not elsewhere classified (principal); G89.29 Other chronic pain; F41.9 Anxiety disorder, unspecified; F17.210 Nicotine dependence, cigarettes, uncomplicated; Z79.899 Other long term (current) drug therapy

== ENCOUNTER → 2018-09-03 | Outpatient (CLI) | payer OTHER ==
--- NOTE | 2018-09-03 14:17 | REP ---
CT Head without contrast HISTORY: Syncope COMPARISON: 04/18/2012 There is no intraparenchymal hemorrhage, acute infarct, mass or midline shift. The ventricular system is normal in appearance. There is no extra cerebral collection. There is no fracture. The visualized sinuses are clear. IMPRESSION: There is no intracranial lesion. Electronically Signed by Last Cuevas MD 09/03/2018 02:09 P
--- NOTE | 2018-09-04 01:54 | REP ---
Clinical: Syncope. Technique: AP, lateral, flexion/extension, bilateral oblique, swimmers and open-mouth views of the cervical spine. 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 Minimal disc space narrowing at C4-5 is noted with 3 mm of retrolisthesis on extension. No acute fracture / compression injury. Oblique views cannot exclude narrowing of the neural foramen (right greater than left). Impression: Degenerative changes as noted above including grade 1 retrolisthesis at C4-5. Electronically Signed by Tayo Frias MD 09/04/2018 01:46 A
== END ==
LOC: M RAD 13:33
PROVIDERS: ATTEND Physician Assistant Medical
DX: M43.12 Spondylolisthesis, cervical region (principal); R55 Syncope and collapse

== ENCOUNTER → 2018-09-18 | Outpatient (CLI) | payer OTHER ==
--- NOTE | 2018-09-19 10:28 | EEG ---
DATE OF PROCEDURE: 09/18/2018 REFERRING PHYSICIAN: CONY Ingram DIAGNOSIS: Syncope with collapse, rule out seizures. EEG NUMBER: [id number]. HISTORY: Patient is a 53-year-old woman who had an episode of syncope. This EEG was done to rule out epileptic potential. TECHNICAL DESCRIPTION: This digital EEG was recorded by 21 scalp, ear and two EKG electrodes and was reviewed in bipolar and referential montages following reformatting in 10-20 international electrode placement system. INTERPRETATION: Patient was noted to be in awake and drowsy states during this EEG. Resting awake background consisted of well-formed posterior dominant rhythm with anterior/posterior gradient comprising of 10 Hz alpha activity measuring 15-50 microvolts in amplitude, which was symmetric and reactive to eye opening. Attenuation of posterior dominant rhythm was seen during transition into drowsiness. Anteriorly low voltage and mixed frequency activity was noted. Stage I and II sleep were reviewed and were symmetric bilaterally. Hyperventilation remained unremarkable. Photic stimulation remained unremarkable. EKG lead was affected by artifact continuously throughout this recording. No focal, lateralizing or epileptiform abnormalities were seen. No clinical or electrographic seizures were recorded. CONCLUSION: This EEG in awake, drowsy states, stage I and II sleep is within normal limits. EKG was no readable likely due to electrode placement. [facility]
== END ==
LOC: M SLEEP 08:47
PROVIDERS: ATTEND Physician Assistant Medical
DX: R55 Syncope and collapse (principal)

== ENCOUNTER → 2018-10-27 | Outpatient (REF) | payer OTHER ==
[2018-10-29 14:14] LABS: HPV HYBRID CAPTURE II Negative (Negative)
== END ==
LOC: M SFHCWAGY 10:55
PROVIDERS: ATTEND Nurse Practitioner Women's Health
DX: Z12.4 Encounter for screening for malignant neoplasm of cervix (principal); Z78.0 Asymptomatic menopausal state
CPT/HCPCS: 87624; G0123

== ENCOUNTER → 2018-11-02 | Outpatient (CLI) | payer OTHER ==
--- NOTE | 2018-11-17 01:47 | ECWPNPC ---
PATIENT NAME: SHANELL MENDIETA : 1965 GENDER: FEMALE VISIT DATE: 11/02/2018 DISCHARGE DATE: 11/02/18 1127 VISIT LOCKED DATE TIME: PHYSICIAN: DONNA GRIGGS MD RESOURCE: DONNA GRIGGS MD REASON FOR APPOINTMENT 1. W/C LOW BACK- INCREASE IN PAIN HISTORY OF PRESENT ILLNESS HISTORY OF PRESENT ILLNESS: PAIN THE PATIENT DESCRIBES THE PAIN... 53 YEAR OLD FEMALE PATIENT WITH A HISTORY OF CHRONIC LOW BACK PAIN. THE PATIENT DESCRIBES THE PAIN SORE AND INTERMITTENT WITH A PAIN SCORE OF 5-8/10 DEPENDING ON PHYSICAL ACTIVITY. 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 THE PATIENT RECEIVED A SACROILIAC JOINT BLOCK ON 08/17/2018 AND SAYS THAT IT GAVE HER GOOD PAIN RELIEF FOR OVER 2 MONTHS AND HER PAIN HAS RECENTLY RETURNED. THE PATIENT SAYS THAT SHE HAS DIFFICULTY DOING DAILY ACTIVITIES SUCH WORKING, COOKING, AND CLEANING DUE TO THIS INCREASE IN PAIN. PATIENT DENIES UNEXPLAINABLE WEIGHT LOSS, FEVER, CHILLS, NEW CHANGES ON HER URINARY OR BOWEL CONTROL. FALL RISK SCREENING: SCREENING :NO FALLS REPORTED IN THE LAST YEAR CURRENT MEDICATIONS TAKING LIDOCAINE 5 % PATCH 1 PATCH TO SKIN REMOVE AFTER 12 HOURS EXTERNALLY ONCE A DAY NEEDED TAKING CYCLOBENZAPRINE HCL 10 MG TABLET 1 TABLET ORALLY TID PPRN TAKING NAPROXEN 500 MG TABLET 1 TABLET NEEDED ORALLY EVERY 12 HRS TAKING ZOLOFT 50 MG TABLET 1.5 TABLET ORALLY BEFORE BEDTIME TAKING AMBIEN 10 MG TABLET 1 TABLET AT BEDTIME NEEDED ORALLY BEFORE BEDTIME NOT-TAKING NICOTROL 10 MG INHALER 1 CARTRIDGE NEEDED INHALATION 16 TIME(S) A DAY NOT-TAKING BACLOFEN 10 MG TABLET 1 TABLET WITH FOOD OR MILK ORALLY DAILY NOT-TAKING NICOTINE POLACRILEX 2 MG GUM 1 PIECE NEEDED INSTEAD OF SMOKING MOUTH/THROAT 5 TIMES A DAY MEDICATION LIST REVIEWED AND RECONCILED WITH THE PATIENT PAST MEDICAL HISTORY ANXIETY TOBACCO USE LOW BACK PAIN RELATED TO WORKER'S COMP. INJURY JUMPED OVER A PUDDLE IN THE BUS GARAGE MOVED JUST WRONG C PAIN EVER SINCE DOES PT, SEES SOS CERVICAL SPINE FUSION IN 2011 ALLERGIES N.K.D.A. SURGICAL HISTORY C4-C5 FUSION 2012 APPENDECTOMY 1993 C SECTION 1986 FAMILY HISTORY FATHER: ALIVE, DIAGNOSED WITH DIABETES, HEART DISEASE MOTHER: ALIVE 1 SON(S) , 2 DAUGHTER(S) - HEALTHY. PATERNAL AUNTS HAD BREAST CANCER\\NSON HAS RHEUMATOID ARTHRITIS, THYROID ISSUES\\NDAUGHTER THYROID DISEASE. SOCIAL HISTORY GENERAL: TOBACCO USE ARE YOU A:FORMER SMOKER HOW LONG HAS IT BEEN SINCE YOU LAST SMOKED?1-3 MONTHS QUIT SMOKING 09/03/18 VAPORYES LATEX QUESTIONNAIRE LATEX ALLERGY : HAVE YOU EVER DEVELOPED ANY TYPE OF REACTION AFTER HANDLING LATEX PRODUCTS SUCH RUBBER GLOVES, CONDOMS, DIAPHRAGMS, BALLOONS, SOCKS, OR UNDERWEAR?NO LATEX ALLERGY : HAVE YOU EVER DEVELOPED ANY TYPE OF REACTION DURING OR AFTER DENTAL APPOINTMENT, VAGINAL/RECTAL EXAMINATION, SURGICAL PROCEDURE, OR ANY OTHER EXPOSURE?NO LATEX RISK : HAVE YOU EVER HAD ANY DIFFICULTY BREATHING OR HIVES AFTER EATING OR HANDLING ANY FRUITS, OR VEGETABLES; SUCH KIWI, BANANAS, STONE FRUITS, OR CHESTNUTSNO LATEX RISK : DO YOU HAVE A PREVIOUS PERSONAL HISTORY OF MORE THAN NINE SURGERIES, SPINA BIFIDA, OR REPEATED CATHERTIZATIONS? NO LATEX RISK : ARE YOU FREQUENTLY EXPOSED TO LATEX PRODUCTS IN YOUR OCCUPATION?NO DATE ASKED : 10/27/2018 LUNG CANCER SCREENING SMOKING STATUS:CURRENT SMOKER VAPOR BMI CARE GOAL FOLLOW-UP ABOVE NORMAL BMI FOLLOW-UPDIETARY MANAGEMENT EDUCATION, GUIDANCE, AND COUNSELING, DIETARY NEEDS EDUCATION ALCOHOL SCREENING DID YOU HAVE A DRINK CONTAINING ALCOHOL IN THE PAST YEAR?NO POINTS0 INTERPRETATIONNEGATIVE RECREATIONAL DRUG USE DRUG USE?NO CAFFEINE CAFFEINE USE?YES HOW OFTEN AND HOW MUCH? 2 CUPS COFFEE AND 1 SODA/DAY SEXUAL HX HAD SEX IN THE LAST 12 MONTHS (VAGINAL, ORAL, OR ANAL)?YES WITHMEN ONLY USE PROTECTION?NO HAVE YOU EVER HAD AN STD?NO LMP:MENOPAUSE HIV / HEP-C SCREENING HIV TEST OFFERED TO PATIENT:YES DECLINED DATE OFFERED:10/27/2018 TEST ACCEPTED:NO REASON:PATIENT DECLINED BROCHURE PROVIDED TO PATIENTNO HEP-C TEST OFFERED TO PATIENT:NO DECLINED UATSDIN [id number] HOLINESS LANGUAGE MALAYSIAN. 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 DIET: REGULAR. EXERCISE: ACTIVE THROUGH WORK AND AT HOME.YOGA 5 DAYS WEEKLY. MARITAL STATUS: .. OTHERS AT HOME: BOYFRIEND. PAIN CLINIC PFS, CLERGY, PUBLIC HEALTH REFERRALS HAS THE PATIENT BEEN EDUCATED REGARDING HIS/HER PLAN OF CARE?YES HAS THE PATIENT BEEN EDUCATED REGARDING PAIN, THE RISK FOR PAIN, THE IMPORTANCE OF EFFECTIVE PAIN MANAGEMENT, AND THE PAIN ASSESSMENT PROCESS?YES ADVANCE DIRECTIVE ADVANCE DIRECTIVE DISCUSSED WITH PATIENT:YES HCP - JUDY BROTHERS (DAUGHTER) REVIEWED WITH PATIENT 05/14/18 1142 JSREVIEWED WITH PATIENT 07/15/18 1625 JS/11/13 REVIEWED WITH PT. EMAWED WITH PATIENT 11/02/18 1002 JS. HOSPITALIZATION/MAJOR DIAGNOSTIC PROCEDURE CHILDBIRTH X2 X 1 REVIEW OF SYSTEMS REVIEWED BY: PROVIDER: DONNA GRIGGS MD . CONSTITUTIONAL: ANY CHANGE IN YOUR MEDICAL CONDITION? NO . CHILLS NO . FEVER NO . INFECTION: DO YOU HAVE NEW INFECTIONS? NO . DO YOU HAVE HISTORY OF MRSA? NO . MUSCULOSKELETAL: ANY NEW PATTERNS OF PAIN OR NUMBNESS? YES, STATES INCREASED PAIN RECENTLY, MAKING IT INTOLERABLE TO WORK, ONLY LAYING DOWN HAS BEEN HELPING . GASTROENTEROLOGY: ANY NEW CHANGE IN BOWEL CONTROL? NO . GENITOURINARY: ANY NEW CHANGE IN BLADDER CONTROL? NO . IS THERE A CHANCE YOU COULD BE ? NO . HEMATOLOGY/LYMPH: DO YOU TAKE ANY BLOOD THINNERS? (FOR EXAMPLE- COUMADIN, PLAVIX, AGGRENOX, PLATEL, PRADAXA, OR XARELTO) NO . WHEN WAS YOUR LAST DOSE? DATE: TIME: . NEUROLOGY: HAVE YOU FALLEN IN THE PAST 12 MONTHS? YES, STATES FALL PRIOR TO LAST VISIT, DISCUSSED AT LAST VISIT . ANY NEW EXTREMITY NUMBNESS OR WEAKNESS? NO . CARDIOLOGY: DO YOU HAVE A PACEMAKER OR DEFIBRILLATOR? NO . RESPIRATORY: HAVE YOU BEEN SICK IN THE PAST WEEK? NO . FEVER NO . FLU LIKE SYMPTOMS? NO . COUGH NO . INTEGUMENTARY: DO YOU HAVE ANY RASHES OR OPEN SORES? NO . ALLERGIC/IMMUNO: ARE YOU ALLERGIC TO IV DYE? NO . ANY NEW ALLERGIES? NO . PSYCHIATRIC: DO YOU HAVE THOUGHTS OF HURTING YOURSELF OR SOMEONE ELSE? NO . ARE YOU ABUSED, NEGLECTED, OR IN AN UNSAFE ENVIRONMENT? NO . ENDOCRINOLOGY: ARE YOU DIABETIC? NO . OTHER: DO YOU NEED ANY PRESCRIPTIONS? NO . IF YES, PLEASE LIST: ____ . ANY NEW PROBLEMS WITH YOUR MEDICATIONS? NO . WHEN DID YOU LAST EAT? ____ . WHEN DID YOU LAST DRINK? ____ . WHAT DID YOU LAST DRINK? ____ . NAME OF PERSON DRIVING YOU HOME? ____ . DO YOU HAVE ANY OTHER QUESTIONS OR CONCERNS YES, STATES THAT THE INJECTION DIDN'T LAST VERY LONG, ONLY LASTED ABOUT 4 WEEKS . VITAL SIGNS WT 145.8 LBS, HT 62 IN, BMI 26.66 INDEX, BP 112/67 MM HG, HR 90 /MIN, RR 18 /MIN, TEMP 96.2 F, OXYGEN SAT % 99%, SAFE IN ENV? (Y/N) YES, NA INITIALS GA 09:56, REVIEWED BY: BRANDON. EXAMINATION GENERAL EXAMINATION: PATIENT IS ALERT O X 3 AND COOPERATIVE. TENDERNESS IN THE LOW BACK AREA OVER THE RIGHT SACROILIAC JOINT. FABERE TEST IS POSITIVE FOR RIGHT SACROILIAC JOINT DYSFUNCTION. MRI OF THE LUMBAR SPINE DONE ON 03/19/2018 SHOWS BULGING DISCS AND FACET ARTHROPATHY CHANGES AT MULTIPLE LEVELS. ASSESSMENTS SACROILIITIS, NOT ELSEWHERE CLASSIFIED - M46.1 (PRIMARY) TREATMENT SACROILIITIS, NOT ELSEWHERE CLASSIFIED CLINICAL NOTES: WE DISCUSSED SEVERAL ISSUES WITH MRS. MENDIETA'S PAIN MANAGEMENT CASE. DUE TO THE SACROILIITIS AND THE PATIENT HAVING GOOD PAIN RELIEF IN THE PAST FOLLOWING INJECTIONS, I WOULD LIKE TO MOVE FORWARD WITH A RIGHT SACROILIAC JOINT BLOCK. WE DISCUSSED THE BENEFITS, RISKS, AND ALTERNATIVES OF THE INJECTION AND THE PATIENT WOULD LIKE TO PROCEED. THE PATIENT WILL START USING IBUPROFEN IN PLACE OF THE NAPROXEN TO AID IN PAIN RELIEF. THE PATIENT WILL CONSIDER SWITCHING FROM ZOLOFT TO CYMBALTA IN THE FUTURE. THE PATIENT WILL FOLLOW UP IN 2 MONTHS. INSTRUCTIONS WERE GIVEN, QUESTIONS WERE ANSWERED, PATIENT REPORTS UNDERSTANDING AND AGREES WITH THE PLAN. I, SONNY OLIVAREZ, DOCUMENTED THE ABOVE INFORMATION ACTING A SCRIBE FOR DR. GRIGGS. I HAVE REVIEWED THE ABOVE DOCUMENT, WRITTEN BY SONNY MARTIN AND I VERIFY THAT IT IS ACCURATE. . OTHERS START IBUPROFEN TABLET, 800 MG, 1 TABLET WITH FOOD OR MILK NEEDED, ORALLY, THREE TIMES A DAY MDD3, 30 DAYS, 70, REFILLS 1 PROCEDURES PN WORKMANS' COMP OPINION IN YOUR OPINION, WAS THE INCIDENT THAT THE PATIENT DESCRIBED THE COMPETENT MEDICAL CAUSE OF THIS INJURY/ILLNESS? YES ARE THE PATIENT'S COMPLAINTS CONSISTENT WITH HIS/HER HISTORY OF THE INJURY/ILLNESS? YES IS THE PATIENT'S HISTORY OF THE INJURY/ILLNESS CONSISTENT WITH YOUR OBJECTIVE FINDING? YES WHAT IS THE PERCENTAGE OF TEMPORARY IMPAIRMENT? MODERATE TO MARKED = 66.7% IS THE PATIENT WORKING? YES DOCTOR ON SITE: DONNA MARISACL MD PREVENTIVE MEDICINE PAIN CLINIC TEACHING: PROCEDURE TEACHING REVIEWED INFORMATION ON SACROILIAC JOINT INJECTION WITH PATIENT. ALSO REVIEWED PRE-PROCEDURE INSTRUCTIONS. PATIENT VERBALIZED AN UNDERSTANDING. STEPHANI JEFFRIES 11/02/2018 11:32:16 AM > . PROCEDURE CODES FA211 ESTABILISHED PATIENT [facility] CHARGE G8427 CURRENT MEDS W/DOSAGES DOCUMENTED G8730 PAIN ASSESS POS TOOL F/U PLAN DOC DISPOSITION & COMMUNICATION FOLLOW UP 2 MONTHS ELECTRONICALLY SIGNED BY DONNA GRIGGS MD, MD ON 11/16/2018 AT 06:26 PM EDT DISCLAIMER : THIS IS A VISIT SUMMARY EXTRACTED FROM THE [employer] CHART. IT IS NOT A COPY OF THE [employer] PROGRESS NOTE. MARIANN
== END ==
LOC: M PAIN 09:45
PROVIDERS: ATTEND Anesthesiology
DX: M46.1 Sacroiliitis, not elsewhere classified (principal); G89.29 Other chronic pain; F41.9 Anxiety disorder, unspecified; F17.290 Nicotine dependence, other tobacco product, uncomplicated; Z79.899 Other long term (current) drug therapy

== ENCOUNTER 2018-12-18 22:49 | Inpatient (IN) | payer OTHER ==
[~2018-12-18] VITALS: Ht 157.5 cm; Wt 64.0 kg
[~2018-12-18 22:49] MED LIST changes: -ZOLP10TA2; +ZOLP10TA2 PO
[2018-12-18] MEDS ORDERED: IBUP-1114 PO (23:13)
[2018-12-18 23:37] LABS: HEMATOCRIT 36.4 % (36.0-47.0); HEMOGLOBIN 12.4 g/dl (12.0-15.5); MEAN CORPUSCULAR HGB CONC 34.1 g/dl (32.0-36.5); MEAN CORPUSCULAR VOLUME 94.1 fl (80.0-96.0); PLATELET COUNT, AUTOMATED 241 10^3/uL (150-450); RED BLOOD COUNT 3.87 10^6/uL (4.00-5.40); WHITE BLOOD COUNT 7.1 10^3/uL (4.0-10.0)
[2018-12-18 23:38] LABS: VENOUS BASE EXCESS -0.5 (-2.0-2.0); VENOUS HCO3 25.4 MEQ/L (23.0-27.0); VENOUS O2 SATURATION 79.4 % (60.0-80.0); VENOUS PARTIAL PRESSURE CO2 46.6 mmHg (38.0-50.0); VENOUS PARTIAL PRESSURE O2 44.9 mmHg (30.0-50.0); VENOUS PH 7.354 UNITS (7.330-7.430); VENOUS STANDARD HCO3 23.6 MEQ/L; VENOUS TOTAL CO2 26.8 MEQ/L (24.0-28.0)
[2018-12-19 00:05] LABS: AMPHETAMINES LEVEL URINE NEGATIVE (NEGATIVE); BARBITURATES URINE NEGATIVE (NEGATIVE); BENZODIAZEPINES URINE NEGATIVE (NEGATIVE); CANNABINOIDS URINE NEGATIVE (NEGATIVE); COCAINE METABOLITE URINE NEGATIVE (NEGATIVE); METHADONE URINE NEGATIVE (NEGATIVE); OPIATES URINE NEGATIVE (NEGATIVE); PHENCYCLIDINE URINE NEGATIVE (NEGATIVE)
[2018-12-19 00:14] LABS: ACETAMINOPHEN LEVEL < 2.0 UG/ML (10.0-30.0); ALBUMIN 3.8 GM/DL (3.2-5.2); ALT/SGPT 19 U/L (12-78); BILIRUBIN,DIRECT < 0.1 MG/DL (0.0-0.2); BILIRUBIN,TOTAL 0.3 MG/DL (0.2-1.0); BLOOD UREA NITROGEN 17 MG/DL (7-18); CALCIUM LEVEL 8.7 MG/DL (8.5-10.1); CARBON DIOXIDE LEVEL 27 MEQ/L (21-32); CHLORIDE LEVEL 109 MEQ/L (98-107); CREATININE FOR GFR 0.85 MG/DL (0.55-1.30); ETHYL ALCOHOL (ETHANOL) < 0.003 % (0.000-0.010); GLOMERULAR FILTRATION RATE > 60.0 (>51); GLUCOSE, FASTING 99 MG/DL (70-100); POTASSIUM SERUM 3.8 MEQ/L (3.5-5.1); SALICYLATE LEVEL < 1.7 MG/DL (5.0-30.0); SODIUM LEVEL 143 MEQ/L (136-145); TOTAL PROTEIN 6.4 GM/DL (6.4-8.2)
[2018-12-19] MEDS ORDERED: MOM 30ML SUSPENSION UDC PO PRN (01:30)
[2018-12-19] MEDS ORDERED: MAALOX 30 ML SUSP *UDC PO PRN (01:30)
[2018-12-19] MEDS ORDERED: traZODone 50 MG TAB PO PRN (01:30)
[2018-12-19] MEDS ORDERED: CYCL10TA PO (01:59)
[2018-12-19] MEDS ORDERED: IBUP80TA PO (01:59)
[2018-12-19] MEDS ORDERED: LIDO1PAD TOP (01:59)
[2018-12-19] MEDS ORDERED: SERT-155 PO (01:59)
[2018-12-19 02:46] VITALS: BP 112/74
--- NOTE | 2018-12-19 08:01 | MHHPEPDOC ---
General Date Of Admission: December 19, 2018 Legal Status: 9.39 Chief Complaint "The school doesn't support me. 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 Apparently she had some time off for disability of back pain and neck pain and still has some residual feelings that she was being observed and watched while she was disabled by this school, not wanting to pay her disability. However, she has returned to work now. 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 She also has 4 gra ndchildren, age 12, 5, 7 and 2. She is treated by Dr. Mian saxena. She has had neck surgery in 2009. She presently uses Zoloft 50 for 13 years, as well as lidocaine patches, Flexeril, ibuprofen and Ambien. She has never had a psychiatric hospitalization or outpatient treatment. Her legal history is negative. 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 Review of emergency note indicates that she has at least been upset since last Friday and apparently has had "meltdowns" at the bus garage and that she is not behaving as she normally does with much crying and speaking in ways that are difficult to understand. It is noted that the emergency room evaluation also had difficulties understanding the patient's story. She has had no psychiatric outpatient care. Her legal history is negative. She presently has a fianc who is a washcloth folder at the state [employer] in [place] and he will be hiring soon. They have been together 9 years. Her drug history is negative. Her neurological history is positive for having passed out once recently, but results from A been negative. Patient states "I couldn't deal". I have worked 25 years and the school does not support me. Described episodes at the of children being in unsafe situations and it was described by her coworkers that she's had episodes at the [employer] "not been herself". Patient states she has begged God to take her away from her pain Psychiatric Review of Systems Depression (2 or more weeks): depressed mood, insomnia/hypersomnia, feelings of excess/guilt, feelings of worthlesness, difficulty concentrating, suicidal thoughts Nazia (4 or more days of): denies Psychosis: paranoia, disorganization PTSD: denies Anxiety: stressor related anxiety Past Psychiatric History Previous Psychiatric Diagnosis: Not documented. Previous Psychiatric Admissions:. None. Suicide Attempts:. None. Psychiatric Follow-up:. None . Psychiatric medications:. Zoloft 50, prescribed by general practitioner. Past Medical History Medical Problems Back and neck pain requiring lidocaine patches Head Injury: No Seizures: No Hospitalizations: No Surgeries: No Family Medical/Psychiatric HX Psychiatric Disorders: No Addiction: No Suicide Attemps/Completions: No Addiction History denies Social History Childhood: . Abuse/Trauma:. Current Living Situation: Lives with boyfriend. Education:, High school. 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 Social Support: Family. Legal:. Negative. Marital: , but now has fiance. Mental Status Examination General Appearance: disheveled Build: average Demeanor: average Eye Contact: average Activity: average Behavior: cooperative Speech: clear Mood: anxious Affect: anxious, disorganized Thought Process: circumstantial, derailment Thought Content (Delusions): persecutory, paranoia Thought Content (Other): appears paranoid Thought Content (Aggressive): none reported Perception (Hallucinations): none reported Perception (Other): none reported Cognition (Impairment of): none reported, attention/concentration Cognition(Intelligence Est.): average Oriented: Oriented times three Insight: poor Judgment: Poor Psychosis: Denies Diagnoses Depression with psychotic features A-FIB/CHADSVASC A-FIB History Current/History of A-Fib/PAF?: No Initial Treatment Plan 1. Patient was admitted on a [9.39] status. 2. Complete history was obtained. 3. With patients permission, family will be contacted and database will be expanded. 4. Patients medication regimen will be reviewed and changed accordingly. 5. Patient will be provided with protected environment. 6. Patient will be treated with individual, group, and milieu therapies. 7. Patient will receive supportive psych-education. 8. Discharge planning will commence immediately. 9. Outpatient follow-up treatment will be strongly recommended. 10. The initial treatment plan will focus initially on: * Depression. * Risk for suicide. * Substance abuse. ESTIMATED LENGTH OF STAY: - DAYS. TIME SPENT COUNSELING AND COORDINATING INITIAL CARE: minutes. Vital Signs Vital Signs Date Time Temp Pulse Resp B/P (MAP) Pulse Ox O2 Delivery O2 Flow Rate FiO2 12/19/18 02:46 97.9 84 18 112/74 (87) 12/19/18 02:11 100 Room Air Laboratory Data 24H Labs Laboratory Tests 2 12/18/18 23:27: Nucleated Red Blood Cells % (auto) 0.0, Blood Gas Bicarbonate Standard 23.6, Venous Blood pH 7.354, Venous Blood Partial Pressure CO2 46.6, Venous Blood Partial Pressure O2 44.9, Venous Blood Total Carbon Dioxide 26.8, Venous Blood HCO3 25.4, Venous Blood Oxygen Saturation 79.4, Venous Blood Base Excess -0.5, Anion Gap 7L, Glomerular Filtration Rate > 60.0, Calcium Level 8.7, Aspartate Amino Transf (AST/SGOT) 14, Alanine Aminotransferase (ALT/SGPT) 19, Alkaline Phosphatase 81, Total Bilirubin 0.3, Direct Bilirubin < 0.1, Total Protein 6.4, Albumin 3.8, Albumin/Globulin Ratio 1.46, Thyroid Stimulating Hormone (TSH) 2.010, Salicylates Level < 1.7L, Urine Amphetamines Screen NEGATIVE, Urine Mac zodiazepines Screen NEGATIVE, Urine Opiates Screen NEGATIVE, Urine Methadone Screen NEGATIVE, Acetaminophen Level < 2.0L, Urine Barbiturates Screen NEGATIVE, Urine Phencyclidine Screen NEGATIVE, Urine Cocaine Metabolite Screen NEGATIVE, Urine Cannabinoids Screen NEGATIVE, Ethyl Alcohol Level < 0.003 CBC/BMP Laboratory Tests 12/18/18 23:27 Red Blood Count 3.87 L, Mean Corpuscular Volume 94.1, Mean Corpuscular Hemoglobin 32.0, Mean Corpuscular Hemoglobin Concent 34.1, Red Cell Distribution Width 11.5 Medications Scheduled Lidocaine (Lidocaine) 5% Adh..patch, 1 PATCH TOP DAILY, (Reported) ON BACK Sertraline HCl (Sertraline HCl) 50 Mg Tablet, 75 MG PO DAILY, (Reported) Scheduled PRN Cyclobenzaprine HCl (Cyclobenzaprine HCl) 10 Mg Tablet, 10 MG PO TID PRN for MUSCLE SPASMS, (Reported) Ibuprofen (Ibuprofen) 800 Mg Tablet, 800 MG PO TID PRN for PAIN, (Reported) Zolpidem Tartrate (Zolpidem Tartrate) 10 Mg Tab, 10 MG PO QHS PRN for INSOMNIA, (Reported) Allergies Coded Allergies: No Known Allergies (Unverified , 12/18/18) MICAH MÉNDEZ MD December 19, 2018 08:01
[2018-12-19] MEDS ORDERED: PALIPERIDONE 3 MG ER TAB (INVEGA) PO SCH (09:00)
[2018-12-19] MEDS ORDERED: LIDOCAINE 5% (LIDODERM) PATCH TD SCH (09:00)
[2018-12-19] MEDS: SERTRALINE 100 MG TAB PO SCH (10:31)
[2018-12-19] MEDS ORDERED: diphenhydrAMINE CREAM 30GM TOP PRN (12:00)
--- NOTE | 2018-12-19 16:19 | ECGEPIP ---
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
[2018-12-19] MEDS: IBUPROFEN 800 MG TAB PO PRN (18:11)
[2018-12-19 18:17] VITALS: BP 136/89
[2018-12-19] MEDS: LIDOCAINE 5% (LIDODERM) PATCH TD SCH (20:56)
[2018-12-19] MEDS ORDERED: **NOTE PATIENT COMMENT** MISC XX SCH (21:00)
[2018-12-20] MEDS: IBUPROFEN 800 MG TAB PO PRN ×3 (05:49→22:22)
--- NOTE | 2018-12-20 06:48 | HPE ---
DATE OF ADMISSION: 12/19/2018 Please refer to the psychiatric history and evaluation for further details on this admission. This examination and history is intended for medical issues which may need treatment, followup or consultation on this 53-year-old female admitted to the mental health unit. ALLERGIES: No known allergies. PRIMARY CARE PROVIDER: CONY Ingram SOCIAL HISTORY: She is single, engaged. ETOH - occasionally she states, if that once a month. Smokes - she states she quit August 2018. Recreational drug use - none. PAST MEDICAL HISTORY: Chronic back pain. PAST SURGICAL HISTORY: Neck surgery with fusion times one. Left eye tear duct surgery after traumatic injury. Appendectomy. . HOME MEDICATIONS: - cyclobenzaprine 10 mg by mouth three times a day as needed muscle spasms - ibuprofen 800 mg by mouth three times a day for pain - Sertraline 75 mg by mouth daily - lidocaine 5% patch two to the back, on 12 off 12 - zolpidem tartrate 10 mg by mouth at bedtime as needed for insomnia FAMILY HISTORY: Mother is alive and well. Father has diabetes, CVA, has had a myocardial infarction. LABORATORY STUDIES: White count 7.1, hemoglobin 12.4, hematocrit 36.4, MCV 94.1, platelets 241. Sodium 143, potassium 3.8, chloride 109, CO2 27, anion gap 7, BUN 17, creatinine 0.85, TSH 2.010. Urine toxicology was negative. Venous blood gas was normal. REVIEW OF SYSTEMS: No complaint of headache. No blurred or double vision. No fever. No chills. No tinnitus. No hoarseness. No difficulty swallowing. No lightheadedness. No vertigo. Breasts: No masses. Cardiovascular: No complaints of chest pain, shortness of breath, palpitations, or edema. Respiratory: No chronic cough. No sputum production. No hemoptysis. No orthopnea. No wheeze. GI: No nausea, vomiting or diarrhea. No hematochezia. No melena. No complaints of abdominal pain. : No hematuria, dysuria or frequency. Musculoskeletal: No joint redness or swelling. Endocrine: No polyuria, polydipsia or polyphagia. Hematologic: No history of anemia. Neurologic: No history of seizures. No paralysis. Psychologic: See psychiatric history and physical. PHYSICAL EXAMINATION: 53-year-old cooperative female in no acute distress. Height 62 inches. Weight 61.4 kg. Body mass index (BMI) 24.8. Blood pressure 112/74. Pulse 84. Respirations 18. Temperature 97.2. The patient is alert and oriented times three. Pupils equal and reactive to light. Extraocular movements intact. Cornea and sclera clear. Conjunctiva normal. No facial asymmetry. Pharynx, tongue and gums pink and moist. Tongue is midline. Neck is supple, without lymphadenopathy. No thyromegaly. No goiter. Carotids 2+, without bruit. Chest clear to auscultation, without wheeze or retraction. Heart is regular. Abdomen benign. Bowel sounds positive. Genitourinary ()/Rectal: Not done. Extremities show equal strength, full range of motion. No cyanosis, clubbing or edema. Peripheral pulses equal and palpable bilaterally. Skin is warm and dry. She has several reddened insect bites, one on her upper chest, two on her arms, legs. No swelling, no drainage. IMPRESSION AND PLAN: 1. Psychiatric. Plan per psychiatry. 2. Baseline EKG ordered. 3. Insect bites. Benadryl cream four times a day as needed for itch. 4. Chronic back pain. Lidocaine patch two to the back, on 12 off 12, and ibuprofen 800 mg one by mouth every 8 hours as needed for pain.
[2018-12-20 06:55] VITALS: BP 99/61
[2018-12-20] MEDS: **NOTE PATIENT COMMENT** MISC XX SCH (09:00)
[2018-12-20] MEDS: SERTRALINE 100 MG TAB PO SCH ×2 (09:56→10:31)
--- NOTE | 2018-12-20 10:43 | MHIPNPDOC ---
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 Has had a couple of weeks of decompensation to her family, coworkers and to me yesterday. She was thought disordered, emotionally labile and seen by staff as having religiosity, as well as paranoia. Today in interview. Patient's thought disorders is diminished and she was having a bright affect and in a good mood. Yesterday she refused. Paliperidone, but today was willing to take it. However, her examination as of today showed significant improvement and paliperidone was held. VITAL SIGNS: See below. NEW TEST RESULTS:. . CURRENT MEDICATIONS: See below. MENTAL STATUS EXAMINATION: Patient is a 53-year old female, who is, apparently improved today. Speech: Is. Normal. Language skills are normal. Thought processes including: Today. No acute disturbance. Thought content:. Normal. Abstract reasoning, and computation: Able to abstract. Description of associations: Loose associations. Description of abnormal or psychotic thoughts:. No expression of psychotic thought. On examination today. Judgment:, Poor. Insight: Fair. Orientation: Intact 3. Recent and remote memory:. No apparent disturbance. Attention span and concentration:, No apparent disturbance. Language: As above. Fund of knowledge:, Intact. Mood: Improved. Affect: Bright. DIAGNOSES: 1. Depression. 2., Rule out depression with psychotic features. 3., Occupational stress. ASSESSMENT:, As of today. Patient is improved, although no antipsychotic was given and her presentation is significantly improved over family and coworkers description as well as emergency room interview and my interview yesterday MANAGEMENT PLAN:, Observation. TIME SPENT:, 30 minutes. Vital Signs Vital Signs Date Time Temp Pulse Resp B/P (MAP) Pulse Ox O2 Delivery O2 Flow Rate FiO2 12/20/18 06:55 97.3 70 12 99/61 (74) 12/19/18 08:31 Room Air 12/19/18 02:11 100 Current Medications Current Medications Acetaminophen (Tylenol Tab) 650 mg Q6HP PRN PO HEADACHE or DISCOMFORT; Start 12/19/18 at 01:30 Al Hydrox/Mg Hydrox/Simethicone (Mylanta) 30 ml Q4HP PRN PO HEARTBURN/INDIGESTION; Start 12/19/18 at 01:30 Cyclobenzaprine HCl (Flexeril) 10 mg TID PRN PO MUSCLE SPASMS; Start 12/20/18 at 06:00 Diphenhydramine HCl (Benadryl Cream) To insect bites on talib... Q4HP PRN TOP ITCHING Last administered on 12/19/18at 18:12; Start 12/19/18 at 12:00 Home Med (Med Rec Complete!) ASDIRECTED XX ; Start 12/19/18 at 02:15; Stop 12/19/18 at 02:15; Status DC Ibuprofen (Advil) 800 mg Q8HP PRN PO MODERATE PAIN (PS 5-7) Last administered on 12/20/18at 05:49; Start 12/19/18 at 12:00 Lidocaine (Lidoderm Patch) 2 patch DAILY TD ; Start 12/19/18 at 09:00; Stop 12/19/18 at 17:51; Status DC Lidocaine (Lidoderm Patch) 2 patch QHS TD Last administered on 12/19/18at 20:56; Start 12/19/18 at 21:00 Magnesium Hydroxide (Milk Of Magnesia) 30 ml DAILYPRN PRN PO CONSTIPATION; Start 12/19/18 at 01:30 Non-Formulary Medication ( See Comment Field Below ) REMOVE LIDODERM PATCH DAILY XX ; Start 12/20/18 at 09:00 Non-Formulary Medication ( See Comment Field Below ) REMOVE LIDODERM PATCH DAILY@21 XX ; Start 12/19/18 at 21:00; Stop 12/19/18 at 21:00; Status DC Paliperidone (Invega) 3 mg QAM PO ; Start 12/19/18 at 09:00; Stop 12/20/18 at 08:51; Status DC Sertraline HCl (Zoloft) 100 mg DAILY PO Last administered on 12/20/18at 10:31; Start 12/19/18 at 09:00 Trazodone HCl (Desyrel) 50 mg QHSP PRN PO INSOMNIA Last administered on 12/19/18at 21:20; Start 12/19/18 at 01:30 Allergies Coded Allergies: No Known Allergies (Unverified , 12/18/18) MICAH MÉNDEZ MD December 20, 2018 10:43
[2018-12-20] MEDS: CYCLOBENZAPRINE 10 MG TAB PO PRN ×2 (14:29→22:22)
[2018-12-20 19:28] VITALS: BP 116/62
[2018-12-20] MEDS: LIDOCAINE 5% (LIDODERM) PATCH TD SCH (22:24)
[2018-12-21] MEDS: ACETAMINOPHEN TAB 650MG DOSE (2X325MG) PO PRN ×2 (05:24→15:42)
[2018-12-21 06:28] VITALS: BP 106/71
[2018-12-21] MEDS: SERTRALINE 100 MG TAB PO SCH (09:58)
[2018-12-21] MEDS: **NOTE PATIENT COMMENT** MISC XX SCH ×2 (09:58→21:28)
--- NOTE | 2018-12-21 11:21 | MHIPNPDOC ---
[facility] Progress Note Progress Note DATE OF SERVICE: 12/21/18 HISTORY: 53-year-old female under job stress, wasn't admitted in a thought disordered State, but cleared spontaneously. She was under stress by her job and her family and her fianc. Her mood and affect have improved and no psychotic symptoms noted VITAL SIGNS: See below. NEW TEST RESULTS: . CURRENT MEDICATIONS: See below. MENTAL STATUS EXAMINATION: Patient is a 53-year old female, who is planning to go on a cruise change her job and reduce her stressors Speech: Is. Normal. Language skills are intact. Thought processes including: Psychotic process. Thought content:. Normal. Abstract reasoning, and computation: Able to abstract. Description of associations: No loose association. Description of abnormal or psychotic thoughts:. No psychotic thought. Judgment:. Improved. Insight: Good. Orientation: Intact 3. Recent and remote memory:. Intact. Attention span and concentration:. No disturbance. Language: Intact. Fund of knowledge:. Complete. Mood: Good. Affect:, Bright. DIAGNOSES: 1., Adjustment disorder with mixed emotions. 2., Occupational stress. . ASSESSMENT: As above MANAGEMENT PLAN:. Outpatient treatment to be arranged. TIME SPENT: 30 minutes. Vital Signs Vital Signs Date Time Temp Pulse Resp B/P (MAP) Pulse Ox O2 Delivery O2 Flow Rate FiO2 12/21/18 06:28 97.8 97 18 106/71 (83) 12/19/18 08:31 Room Air 12/19/18 02:11 100 Current Medications Current Medications Acetaminophen (Tylenol Tab) 650 mg Q6HP PRN PO HEADACHE or DISCOMFORT Last administered on 12/21/18at 05:24; Start 12/19/18 at 01:30 Al Hydrox/Mg Hydrox/Simethicone (Mylanta) 30 ml Q4HP PRN PO H EARTBURN/INDIGESTION; Start 12/19/18 at 01:30 Cyclobenzaprine HCl (Flexeril) 10 mg TID PRN PO MUSCLE SPASMS Last administered on 12/20/18at 22:22; Start 12/20/18 at 06:00 Diphenhydramine HCl (Benadryl Cream) To insect bites on talib... Q4HP PRN TOP ITCHING Last administered on 12/19/18at 18:12; Start 12/19/18 at 12:00 Home Med (Med Rec Complete!) ASDIRECTED XX ; Start 12/19/18 at 02:15; Stop 12/19/18 at 02:15; Status DC Ibuprofen (Advil) 800 mg Q8HP PRN PO MODERATE PAIN (PS 5-7) Last administered on 12/20/18at 22:22; Start 12/19/18 at 12:00 Lidocaine (Lidoderm Patch) 2 patch DAILY TD ; Start 12/19/18 at 09:00; Stop 12/19/18 at 17:51; Status DC Lidocaine (Lidoderm Patch) 2 patch QHS TD Last administered on 12/20/18at 22:24; Start 12/19/18 at 21:00 Magnesium Hydroxide (Milk Of Magnesia) 30 ml DAILYPRN PRN PO CONSTIPATION; Start 12/19/18 at 01:30 Non-Formulary Medication ( See Comment Field Below ) REMOVE LIDODERM PATCH DAILY XX Last administered on 12/21/18at 09:58; Start 12/20/18 at 09:00 Non-Formulary Medication ( See Comment Field Below ) REMOVE LIDODERM PATCH DAILY@21 XX ; Start 12/19/18 at 21:00; Stop 12/19/18 at 21:00; Status DC Paliperidone (Invega) 3 mg QAM PO ; Start 12/19/18 at 09:00; Stop 12/20/18 at 08:51; Status DC Sertraline HCl (Zoloft) 100 mg DAILY PO Last administered on 12/21/18at 09:58; Start 12/19/18 at 09:00 Trazodone HCl (Desyrel) 50 mg QHSP PRN PO INSOMNIA Last administered on 12/19/18at 21:20; Start 12/19/18 at 01:30 Allergies Coded Allergies: No Known Allergies (Unverified , 12/18/18) MICAH MÉNDEZ MD December 21, 2018 11:21
[2018-12-21] MEDS: IBUPROFEN 800 MG TAB PO PRN ×2 (12:50→21:28)
[2018-12-21] MEDS ORDERED: LIDOCAINE 5% (LIDODERM) PATCH TD ONE (15:00)
[2018-12-21 19:08] VITALS: BP 119/70
[2018-12-21] MEDS ORDERED: **NOTE PATIENT COMMENT** MISC XX SCH (21:00)
[2018-12-21] MEDS: CYCLOBENZAPRINE 10 MG TAB PO PRN (21:28)
[2018-12-22 07:16] VITALS: BP 117/68
[2018-12-22] MEDS: SERTRALINE 100 MG TAB PO SCH (08:34)
[2018-12-22] MEDS: IBUPROFEN 800 MG TAB PO PRN ×2 (08:34→22:03)
[2018-12-22] MEDS: LIDOCAINE 5% (LIDODERM) PATCH TD SCH (08:36)
--- NOTE | 2018-12-22 12:00 | MHIPNPDOC ---
[facility] Progress Note Progress Note DATE OF SERVICE: 12/22/18 HISTORY: Per Dr. 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 Apparently she had some time off for disability of back pain and neck pain and still has some residual feelings that she was being observed and watched while she was disabled by this school, not wanting to pay her disability. However, she has returned to work now. 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 She also has 4 grandchildren, age 12, 5, 7 and 2. She is treated by Dr. Mian saxena. She has had neck surgery in 2009. She presently uses Zoloft 50 for 13 years, as well as lidocaine patches, Flexeril, ibuprofen and Ambien. She has never had a psychiatric hospitalization or outpatient treatment. Her legal history is negative. 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 Review of emergency note indicates that she has at least been upset since last Friday and apparently has had "meltdowns" at the bus garage and that she is not behaving as she normally does with much crying and speaking in ways that are difficult to understand. It is noted that the emergency room evaluation also had difficulties understanding the patient's story. She has had no psychiatric outpatient care. Her legal history is negative. She presently has a fianc who is a deputy building guard at the state long-term in [place] and he will be hiring soon. They have been together 9 years. Her drug history is negative. Her neurological history is positive for having passed out once recently, but results from A been negative. Patient states "I couldn't deal". "I have worked 25 years and the school does not support me." Described episodes at the of children being in unsafe situations and it was described by her coworkers that she's had episodes at the [place] garage "not been herself". Patient states she has begged God to take her away from her pain." VITAL SIGNS: See below. NEW TEST RESULTS: See below. CURRENT MEDICATIONS: See below. MENTAL STATUS EXAMINATION: Patient is a 53-year old female, who is planning to go on a cruise, change her job, and reduce her stressors Speech: Is. Normal. Language skills are intact. Thought processes including: linear, logical, future oriented Thought content: denies SI/HI Abstract reasoning, and computation: Able to abstract. Description of associations: No loose association. Description of abnormal or psychotic thoughts: No psychotic thought. Judgment: fair Insight: Good. Orientation: Intact 3. Recent and remote memory: Intact. Attention span and concentration:. No disturbance. Language: Intact. Fund of knowledge:. Complete. Mood: Good. Affect: congruent DIAGNOSES: 1., Adjustment disorder with mixed emotions. ASSESSMENT: 53-year-old female under job stress, wasn't admitted in a thought disordered but per Dr. Lemus appeared to be suffering from at first. She was under stress by her job and her family and her fianc. Her mood and affect have improved and no psychotic symptoms noted. Continues to endorse pain at night affecting her sleep. Is attending groups and finding helpfulStates she's tolerating medications and finding beneficial. Future oriented to stay with her mother for while. Looking forward to her daughter flying up from [facility] to be with her too. MANAGEMENT PLAN: Outpatient treatment to be arranged. Medications: Zoloft 100 mg DAILY Trazodone 50 mg QHSP PRN PO INSOMNIA TIME SPENT: 30 minutes. Vital Signs Vital Signs Date Time Temp Pulse Resp B/P (MAP) Pulse Ox O2 Delivery O2 Flow Rate FiO2 12/22/18 07:16 98.1 100 18 117/68 (84) 12/19/18 08:31 Room Air 12/19/18 02:11 100 Current Medications Current Medications Acetaminophen (Tylenol Tab) 650 mg Q6HP PRN PO HEADACHE or DISCOMFORT Last administered on 12/21/18at 15:42; Start 12/19/18 at 01:30 Al Hydrox/Mg Hydrox/Simethicone (Mylanta) 30 ml Q4HP PRN PO HEARTBURN/INDIGESTION; Start 12/19/18 at 01:30 Cyclobenzaprine HCl (Flexeril) 10 mg TID PRN PO MUSCLE SPASMS Last administered on 12/21/18at 21:28; Start 12/20/18 at 06:00 Diphenhydramine HCl (Benadryl Cream) To insect bites on talib... Q4HP PRN TOP ITCHING Last administered on 12/19/18at 18:12; Start 12/19/18 at 12:00 Home Med (Med Rec Complete!) ASDIRECTED XX ; Start 12/19/18 at 02:15; Stop 12/19/18 at 02:15; Status DC Ibuprofen (Advil) 800 mg Q8HP PRN PO MODERATE PAIN (PS 5-7) Last administered on 12/22/18at 08:34; Start 12/19/18 at 12:00 Lidocaine (Lidoderm Patch) 2 patch DAILY TD ; Start 12/19/18 at 09:00; Stop 12/19/18 at 17:51; Status DC Lidocaine (Lidoderm Patch) 2 patch DAILY TD Last administered on 12/22/18at 08:36; Start 12/22/18 at 09:00 Lidocaine (Lidoderm Patch) 2 patch QHS TD Last administered on 12/20/18at 22:24; Start 12/19/18 at 21:00; Stop 12/21/18 at 14:35; Status DC Magnesium Hydroxide (Milk Of Magnesia) 30 ml DAILYPRN PRN PO CONSTIPATION; Start 12/19/18 at 01:30 Non-Formulary Medication ( See Comment Field Below ) REMOVE LIDODERM PATCH DAILY XX Last administered on 12/21/18at 09:58; Start 12/20/18 at 09:00; Stop 12/21/18 at 14:35; Status DC Non-Formulary Medication ( See Comment Field Below ) REMOVE LIDODERM PATCH DAILY@21 XX ; Start 12/19/18 at 21:00; Stop 12/19/18 at 21:00; Status DC Non-Formulary Medication ( See Comment Field Below ) REMOVE LIDODERM PATCH DAILY@21 XX ; Start 12/21/18 at 21:00; Stop 12/21/18 at 21:00; Status DC Non-Formulary Medication ( See Comment Field Below ) REMOVE LIDODERM PATCH DAILY@21 XX Last administered on 12/21/18at 21:28; Start 12/21/18 at 21:00 Paliperidone (Invega) 3 mg QAM PO ; Start 12/19/18 at 09:00; Stop 12/20/18 at 08:51; Status DC Sertraline HCl (Zoloft) 100 mg DAILY PO Last administered on 12/22/18at 08:34; Start 12/19/18 at 09:00 Trazodone HCl (Desyrel) 50 mg QHSP PRN PO INSOMNIA Last administered on 12/19/18at 21:20; Start 12/19/18 at 01:30 Allergies Coded Allergies: No Known Allergies (Unverified , 12/18/18) TAMICA CORTEZ DO December 22, 2018 12:00 pm
[2018-12-22 18:04] VITALS: BP 126/75
[2018-12-22] MEDS: **NOTE PATIENT COMMENT** MISC XX SCH (21:00)
[2018-12-22] MEDS: CYCLOBENZAPRINE 10 MG TAB PO PRN (22:02)
[2018-12-23 06:32] VITALS: BP 123/61
[2018-12-23] MEDS: IBUPROFEN 800 MG TAB PO PRN (08:43)
[2018-12-23] MEDS: LIDOCAINE 5% (LIDODERM) PATCH TD SCH (08:43)
[2018-12-23] MEDS: SERTRALINE 100 MG TAB PO SCH (08:43)
--- NOTE | 2018-12-23 09:12 | MHDSPDOC ---
[facility] Discharge Summary Discharge Summary DATE OF ADMISSION: December 19, 2018 at 01:18 DATE OF DISCHARGE: December 23, 2018 DISCHARGE DIAGNOSES: 1. Adjustment disorder with mixed emotions. REASON FOR ADMISSION: Per Dr. 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 Apparently she had some time off for disability of back pain and neck pain and still has some residual feelings that she was being observed and watched while she was disabled by this school, not wanting to pay her disability. However, she has returned to work now. 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 She also has 4 grandchildren, age 12, 5, 7 and 2. She is treated by Dr. Mian saxena. She has had neck surgery in 2009. She presently uses Zoloft 50 for 13 years, as well as lidocaine patches, Flexeril, ibuprofen and Ambien. She has never had a psychiatric hospitalization or outpatient treatment. Her legal history is negative. 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 Review of emergency note indicates that she has at least been upset since last Friday and apparently has had "meltdowns" at the bus garage and that she is not behaving as she normally does with much crying and speaking in ways that are difficult to understand. It is noted that the emergency room evaluation also had difficulties understanding the patient's story. She has had no psychiatric outpatient care. Her legal history is negative. She presently has a fianc who is a truck guard at the state snf in [place] and he will be hiring soon. They have been together 9 years. Her drug history is negative. Her neurological history is positive for having passed out once recently, but results from A been negative. Patient states "I couldn't deal". "I have worked 25 years and the school does not support me." Described episodes at the of children being in unsafe situations and it was described by her coworkers that she's had episodes at the [employer] "not been herself". Patient states she has begged God to take her away from her pain." CONSULTANTS INVOLVED: none TREATMENT AND PROGRESS ON THE UNIT : [facility], seen for psychiatric assessment and started on zoloft 100mg daily for mood and anxiety. She was provided trazodone 50mg qhs prn insomnia. Pt found her medications beneficial and tolerated them well. She attended groups daily during her stay. Her symptoms improved with treatment. On day of discharge she denied depression, anxiety, insomnia, SI/HI, hallucinations, delusions. She was discharged home after family meeting with her mother with follow-up at [facility]. She felt safe for discharge DISCHARGE ASSESSMENT: Pt seen and states that her mood is good and is looking forward to going home to stay with her daughter and see her daughter who is coming to visit her from [facility] tomorrow. States she's being social on the milieu which is beneficial. States she slept well last night. Feels she is tolerating her medications and they're beneficial. She is attending groups and finding them helpful. She denies depression, anxiety, insomnia, SI/HI, hallucinations, de lusions. Pt feels safe to be discharged home MENTAL STATUS EXAMINATION ON DISCHARGE: Patient is a 53-year old female, who is looking forward to going home today Speech: Is. Normal. Language skills are intact. Thought processes including: linear, logical, future oriented Thought content: denies SI/HI Abstract reasoning, and computation: Able to abstract. Description of associations: No loose association. Description of abnormal or psychotic thoughts: No psychotic thought. Judgment: good Insight: Good. Orientation: Intact 3. Recent and remote memory: Intact. Attention span and concentration:. No disturbance. Language: Intact. Fund of knowledge:. Complete. Mood: Good. Affect: congruent MEDICATIONS ON DISCHARGE: Zoloft 100 mg DAILY Trazodone 50 mg QHSP PRN PO INSOMNIA PLAN/FOLLOWUP ARRANGEMENTS: D/c home to stay with her mother for a few weeks with follow-up at [facility]. The amount of time spent in the coordination of care for this patient was approximately 30 minutes. Vital Signs/I&Os Vital Signs Date Time Temp Pulse Resp B/P (MAP) Pulse Ox O2 Delivery O2 Flow Rate FiO2 12/23/18 06:32 97.6 72 16 123/61 (81) 12/19/18 08:31 Room Air 12/19/18 02:11 100 Medications Scheduled Lidocaine (Lidocaine) 5% Adh..patch, 1 PATCH TOP DAILY, (Reported) ON BACK Sertraline HCl (Sertraline HCl) 50 Mg Tablet, 75 MG PO DAILY, (Reported) Scheduled PRN Cyclobenzaprine HCl (Cyclobenzaprine HCl) 10 Mg Tablet, 10 MG PO TID PRN for MUSCLE SPASMS, (Reported) Ibuprofen (Ibuprofen) 800 Mg Tablet, 800 MG PO TID PRN for PAIN, (Reported) Zolpidem Tartrate (Zolpidem Tartrate) 10 Mg Tab, 10 MG PO QHS PRN for INSOMNIA, (Reported) Allergies Coded Allergies: No Known Allergies (Unverified , 12/18/18) TAMICA CORTEZ DO December 23, 2018 09:12
[2018-12-23] MEDS ORDERED: SERT-138 PO (09:15)
[2018-12-23] MEDS ORDERED: TRAZO50TA PO (09:15)
== END 2018-12-23 12:43 | disposition home or self-care (01) | DRG 882 ==
LOC: M ED 22:49 → M ED INP 12-19 01:18 → M PSY 12-19 02:38
PROVIDERS: ADMIT Psychiatry & Neurology Child & Adolescent Psychiatry; ATTEND Psychiatry & Neurology Psychiatry
DX: F43.23 Adjustment disorder with mixed anxiety and depressed mood (principal); M54.2 Cervicalgia; Z79.899 Other long term (current) drug therapy; Z87.891 Personal history of nicotine dependence; Z98.1 Arthrodesis status; Z79.1 Long term (current) use of non-steroidal anti-inflammatories (NSAID); Z56.6 Other physical and mental strain related to work

== ENCOUNTER → 2019-01-26 | Outpatient (CLI) | payer OTHER ==
[~2019-01-26] MED LIST changes: +BUPIVACAINE HCL 0.25% 30 ML VIAL As Ordered ONE; +CYCL10TA PO; +IBUP-1114 PO; +IBUP80TA PO; +ISOVUE-M 300 61% 15ML VIAL (Q9967) As Ordered ONE; +LIDO1PAD TOP; +LIDOCAINE 1% SDV INJ 30 ML VIAL As Ordered ONE; +SERT-138 PO; +SERT-155 PO; +TRAZ1TAB10 PO; +TRIAMCINOLONE ACETONIDE SUSP 40 MG/ML VIAL (J3301) As Ordered ONE
--- NOTE | 2019-01-26 10:59 | REP ---
C-ARM VIEWS OF THE RIGHT SACROILIAC JOINT: CLINICAL HISTORY: Pain. Five C-arm views of the right sacroiliac joint performed during injection by Dr. Brewer. Needle is seen overlying the right SI joint and a small amount of contrast is injected. 14 seconds fluoroscopy time utilized. Electronically Signed by Cam Das MD 01/26/2019 11:42 A
--- NOTE | 2019-02-05 01:01 | ECWPNPC ---
PATIENT NAME: SHANELL MENDIETA : 1965 GENDER: FEMALE VISIT DATE: 01/26/2019 DISCHARGE DATE: 01/26/19 0000 VISIT LOCKED DATE TIME: PHYSICIAN: DONNA GRIGGS MD RESOURCE: DONNA GRIGGS MD REASON FOR APPOINTMENT 1. RIGHT SI BLOCK-W/C HISTORY OF PRESENT ILLNESS HISTORY OF PRESENT ILLNESS: PAIN THE PATIENT DESCRIBES THE PAIN... FALL RISK SCREENING: SCREENING :NO FALLS REPORTED IN THE LAST YEAR CURRENT MEDICATIONS TAKING AMBIEN 5 MG TABLET 1 TABLET AT BEDTIME ORALLY ONCE A DAY, NOTES: A COUPLE DAYS TAKING LIDOCAINE 5 % PATCH 1 PATCH TO SKIN REMOVE AFTER 12 HOURS EXTERNALLY ONCE A DAY NEEDED, NOTES: NOT ONE ON NOW TAKING CYCLOBENZAPRINE HCL 10 MG TABLET 1 TABLET ORALLY TID PPRN, NOTES: 01-25-192099 TAKING IBUPROFEN 800 MG TABLET 1 TABLET WITH FOOD OR MILK NEEDED ORALLY THREE TIMES A DAY MDD3, NOTES: 01-25-192099 MEDICATION LIST REVIEWED AND RECONCILED WITH THE PATIENT PAST MEDICAL HISTORY ANXIETY TOBACCO USE LOW BACK PAIN RELATED TO WORKER'S COMP. 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 RUDI BAEZ CERVICAL SPINE FUSION IN 2011 ALLERGIES N.K.D.A. SURGICAL HISTORY C4-C5 FUSION 2011 APPENDECTOMY 1993 C SECTION 1986 FAMILY HISTORY FATHER: ALIVE, DIAGNOSED WITH DIABETES, HEART DISEASE MOTHER: ALIVE 1 SON(S) , 2 DAUGHTER(S) - HEALTHY. PATERNAL AUNTS HAD BREAST CANCER\\\\\\\\NSON HAS RHEUMATOID ARTHRITIS, THYROID ISSUES\\\\\\\\NDAUGHTER THYROID DISEASE. SOCIAL HISTORY GENERAL: TOBACCO USE ARE YOU A:FORMER SMOKER HOW LONG HAS IT BEEN SINCE YOU LAST SMOKED?1-3 MONTHS QUIT SMOKING 09/03/18 VAPORYES HIV / HEP-C SCREENING HIV TEST OFFERED TO PATIENT:YES DECLINED DATE OFFERED:10/27/2018 TEST ACCEPTED:NO REASON:PATIENT DECLINED BROCHURE PROVIDED TO PATIENTNO HEP-C TEST OFFERED TO PATIENT:NO DECLINED OTHERS AT HOME: BOYFRIEND. EDUCATION LEVEL OF EDUCATION:NOT FINISHED COLLEGE DIET: REGULAR. LANGUAGE TAJIK. DOMESTIC VIOLENCE DO YOU FEEL SAFE IN YOUR ENVIRONMENT?YES BMI CARE GOAL FOLLOW-UP ABOVE NORMAL BMI FOLLOW-UPDIETARY MANAGEMENT EDUCATION, GUIDANCE, AND COUNSELING, DIETARY NEEDS EDUCATION RECREATIONAL DRUG USE DRUG USE?NO EXERCISE: ACTIVE THROUGH WORK AND AT HOME.YOGA 5 DAYS WEEKLY. 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 NEEDED?NO LUNG CANCER SCREENING SMOKING STATUS:CURRENT SMOKER VAPOR PAIN CLINIC PFS, CLERGY, PUBLIC HEALTH REFERRALS HAS THE PATIENT BEEN EDUCATED REGARDING HIS/HER PLAN OF CARE?YES HAS THE PATIENT BEEN EDUCATED REGARDING PAIN, THE RISK FOR PAIN, THE IMPORTANCE OF EFFECTIVE PAIN MANAGEMENT, AND THE PAIN ASSESSMENT PROCESS?YES LATEX QUESTIONNAIRE LATEX ALLERGY : HAVE YOU EVER DEVELOPED ANY TYPE OF REACTION AFTER HANDLING LATEX PRODUCTS SUCH RUBBER GLOVES, CONDOMS, DIAPHRAGMS, BALLOONS, SOCKS, OR UNDERWEAR?NO LATEX ALLERGY : HAVE YOU EVER DEVELOPED ANY TYPE OF REACTION DURING OR AFTER DENTAL APPOINTMENT, VAGINAL/RECTAL EXAMINATION, SURGICAL PROCEDURE, OR ANY OTHER EXPOSURE?NO LATEX RISK : HAVE YOU EVER HAD ANY DIFFICULTY BREATHING OR HIVES AFTER EATING OR HANDLING ANY FRUITS, OR VEGETABLES; SUCH KIWI, BANANAS, STONE FRUITS, OR CHESTNUTSNO LATEX RISK : DO YOU HAVE A PREVIOUS PERSONAL HISTORY OF MORE THAN NINE SURGERIES, SPINA BIFIDA, OR REPEATED CATHERTIZATIONS? NO LATEX RISK : ARE YOU FREQUENTLY EXPOSED TO LATEX PRODUCTS IN YOUR OCCUPATION?NO DATE ASKED : 10/27/2018 CAFFEINE CAFFEINE USE?YES HOW OFTEN AND HOW MUCH? 2 CUPS COFFEE AND 1 SODA/DAY ADVANCE DIRECTIVE ADVANCE DIRECTIVE DISCUSSED WITH PATIENT:YES HCP - JUDY BROTHERS (DAUGHTER) LUTHERAN [id number] DRUZE MARITAL STATUS: .. 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 SEXUAL HX HAD SEX IN THE LAST 12 MONTHS (VAGINAL, ORAL, OR ANAL)?YES WITHMEN ONLY USE PROTECTION?NO HAVE YOU EVER HAD AN STD?NO LMP:MENOPAUSE REVIEWED WITH PATIENT 05/14/18 1142 JSREVIEWED WITH PATIENT 07/15/18 1625 JS2/11/13 REVIEWED WITH PT. ADREVIEWED WITH PATIENT 11/02/18 1002 JS. HOSPITALIZATION/MAJOR DIAGNOSTIC PROCEDURE CHILDBIRTH X2 X 1 MENTAL BREAKDOWN 11/2018 REVIEW OF SYSTEMS REVIEWED BY: PROVIDER: . CONSTITUTIONAL: ANY CHANGE IN YOUR MEDICAL CONDITION? NO . CHILLS NO . FEVER NO . INFECTION: DO YOU HAVE NEW INFECTIONS? NO . DO YOU HAVE HISTORY OF MRSA? NO . MUSCULOSKELETAL: ANY NEW PATTERNS OF PAIN OR NUMBNESS? NO . GASTROENTEROLOGY: ANY NEW CHANGE IN BOWEL CONTROL? NO . GENITOURINARY: ANY NEW CHANGE IN BLADDER CONTROL? YES IS SEEING HER PRIMARY FOR THAT . IS THERE A CHANCE YOU COULD BE ? NO . HEMATOLOGY/LYMPH: DO YOU TAKE ANY BLOOD THINNERS? (FOR EXAMPLE- COUMADIN, PLAVIX, AGGRENOX, PLATEL, PRADAXA, OR XARELTO) NO . WHEN WAS YOUR LAST DOSE? DATE: TIME: . NEUROLOGY: HAVE YOU FALLEN IN THE PAST 12 MONTHS? 4 MONTHS AGO "PASSED OUT " IN HER BATHROOM DR Edgardo GUZMAN STATES PATIENT . ANY NEW EXTREMITY NUMBNESS OR WEAKNESS? NO . CARDIOLOGY: DO YOU HAVE A PACEMAKER OR DEFIBRILLATOR? NO . RESPIRATORY: HAVE YOU BEEN SICK IN THE PAST WEEK? NO . FEVER NO . FLU LIKE SYMPTOMS? NO . COUGH NO . INTEGUMENTARY: DO YOU HAVE ANY RASHES OR OPEN SORES? NO . ALLERGIC/IMMUNO: ARE YOU ALLERGIC TO IV DYE? NO . ANY NEW ALLERGIES? NO . PSYCHIATRIC: DO YOU HAVE THOUGHTS OF HURTING YOURSELF OR SOMEONE ELSE? NO . ARE YOU ABUSED, NEGLECTED, OR IN AN UNSAFE ENVIRONMENT? NO . ENDOCRINOLOGY: ARE YOU DIABETIC? NO . OTHER: DO YOU NEED ANY PRESCRIPTIONS? NO . IF YES, PLEASE LIST: ____ . ANY NEW PROBLEMS WITH YOUR MEDICATIONS? NO . WHEN DID YOU LAST EAT? ____ . WHEN DID YOU LAST DRINK? ____ . WHAT DID YOU LAST DRINK? ____ . NAME OF PERSON DRIVING YOU HOME? ____ . DO YOU HAVE ANY OTHER QUESTIONS OR CONCERNS NO . VITAL SIGNS WT 142.4 LBS, HT 62 IN, BMI 26.04 INDEX, BP 113/58 MM HG, HR 83 /MIN, RR 18 /MIN, TEMP 98.0 F, OXYGEN SAT % 99%, NA INITIALS SC 09:06. ASSESSMENTS SACROILIITIS, NOT ELSEWHERE CLASSIFIED - M46.1 (PRIMARY) TREATMENT SACROILIITIS, NOT ELSEWHERE CLASSIFIED [facility] FLUORO GUIDANCE (PAIN)[id number] PROCEDURES PN WORKMANS' COMP OPINION IN YOUR OPINION, WAS THE INCIDENT THAT THE PATIENT DESCRIBED THE COMPETENT MEDICAL CAUSE OF THIS INJURY/ILLNESS? YES ARE THE PATIENT'S COMPLAINTS CONSISTENT WITH HIS/HER HISTORY OF THE INJURY/ILLNESS? YES IS THE PATIENT'S HISTORY OF THE INJURY/ILLNESS CONSISTENT WITH YOUR OBJECTIVE FINDING? YES WHAT IS THE PERCENTAGE OF TEMPORARY IMPAIRMENT? MODERATE TO MARKED = 66.7% IS THE PATIENT WORKING? NO DOCTOR ON SITE: DONNA MARISCAL MD PN SI PRE PROCEDURE DIAGNOSIS SACROILIITIS, SACROILIAC JOINT DYSFUNCTION POST PROCEDURE DIAGNOSIS SACROILIITIS, SACROILIAC JOINT DYSFUNCTION PROCEDURE RIGHT SACROILIAC JOINT BLOCK SURGEON DR. DONNA GRIGGS BILINGUAL SPANISH INBOUND SALES NONE ANESTHESIA LOCAL PRE PROCEDURE NOTE PATIENT WITH HISTORY OF CHRONIC LOW BACK PAIN. I EVALUATED THE PATIENT AND REVIEWED THE CHART. I WENT OVER THE RISKS, ALTERNATIVES, AND BENEFITS ASSOCIATED WITH THIS PROCEDURE. THE PATIENT WOULD LIKE TO PROCEED AND GAVE CONSENT TO PERFORM THE PROCEDURE. THE PATIENT DENIES UNEXPLAINABLE WEIGHT LOSS, FEVER, CHILLS, OR NEW CHANGES IN URINARY OR BOWEL CONTROL DESCRIPTION OF PROCEDURE THE PATIENT WAS BROUGHT TO THE PROCEDURE ROOM AND PLACED IN THE PRONE POSITION. THE LUMBOSACRAL AREA WAS CLEANED WITH CHLORAPREP SOLUTION AND DRAPED ASEPTICALLY. THE PROCEDURE WAS DONE UNDER STERILE CONDITIONS. I CHECKED LATERALITY AND THE LEVEL WHERE THE PROCEDURE WAS GOING TO BE PERFORMED WITH THE PATIENT AND THE SUPPORTING STAFF AT THE MOMENT OF THE TIME OUT IN THE PROCEDURE ROOM. UNDER FLUOROSCOPIC GUIDANCE, TARGET POINT WAS SELECTED AT THE LOWER BORDER OF THE RIGHT SACROILIAC JOINT. TARGET POINT WAS SELECTED AFTER MEDIAL ROTATION AND TILT OF THE MAGNIFIER OF THE C-ARM. LIDOCAINE WAS USED TO NUMB THE SKIN AND SUBCUTANEOUS TISSUE BELOW IT. A SPINAL NEEDLE, 22-GAUGE, WAS ADVANCED UNDER FLUOROSCOPIC GUIDANCE AND FOLLOWING PATIENT FEEDBACK UNTIL THE TARGET AREA WAS TOUCHED. THE POSITION OF THE NEEDLE WAS VERIFIED WITH AP AND LATERAL VIEWS. AFTER PROPER POSITION OF THE NEEDLE WAS ACHIEVED, ISOVUE M DYE 30%, 0.25 ML, WAS INJECTED SHOWING SPREAD OF THE DYE. THEN, A SOLUTION OF 20 MG OF KENALOG WAS INJECTED IN RIGHT JOINT WITH 3 ML OF BUPIVACAINE 0.125%. THERE WAS NO EVIDENCE OF BLOOD, PARESTHESIA OR CEREBROSPINAL FLUID DURING THE PROCEDURE. THE PATIENT WAS SENT TO THE RECOVERY ROOM. THE PATIENT WAS MOVING THE EXTREMITIES AND DOING WELL. THERE WAS NO COMPLICATION DURING THE PROCEDURE. FLUOROSCOPY TIME WAS 14 SECONDS POST PROCEDURE NOTE THE PATIENT WILL BE SEEN IN A FOLLOW UP IN THE NEXT FEW WEEKS. INSTRUCTIONS WERE GIVEN, QUESTIONS WERE ANSWERED, AND THE PATIENT EXPRESSED UNDERSTANDING AND AGREED WITH THE PLAN. I, SONNY OLIVAREZ, DOCUMENTED THE ABOVE INFORMATION ACTING A SCRIBE FOR DR. GRIGGS. I HAVE REVIEWED THE ABOVE DOCUMENT, WRITTEN BY SONNY MARTIN AND I VERIFY THAT IT IS ACCURATE. PROCEDURE CODES 6045F RADXPS IN END [id number] PXD 41600 INJECT SACROILIAC JOINT, MODIFIERS: RT DISPOSITION & COMMUNICATION FOLLOW UP 3 WEEKS ELECTRONICALLY SIGNED BY DONNA GRIGGS MD, MD ON 02/04/2019 AT 01:45 PM EDT DISCLAIMER : THIS IS A VISIT SUMMARY EXTRACTED FROM THE [employer] CHART. IT IS NOT A COPY OF THE [employer] PROGRESS NOTE. MTDD
== END ==
LOC: M PAIN 08:45
PROVIDERS: ATTEND Anesthesiology
DX: M46.1 Sacroiliitis, not elsewhere classified (principal); F41.9 Anxiety disorder, unspecified; M54.5 Low back pain; Z98.1 Arthrodesis status; Z90.49 Acquired absence of other specified parts of digestive tract; Z79.1 Long term (current) use of non-steroidal anti-inflammatories (NSAID); Z79.899 Other long term (current) drug therapy; F17.290 Nicotine dependence, other tobacco product, uncomplicated
CPT/HCPCS: G0260; J3301; Q9967

== ENCOUNTER → 2019-04-22 | Outpatient (CLI) | payer OTHER ==
[~2019-04-22] MED LIST changes: -BUPIVACAINE HCL 0.25% 30 ML VIAL As Ordered ONE; -ISOVUE-M 300 61% 15ML VIAL (Q9967) As Ordered ONE; -LIDOCAINE 1% SDV INJ 30 ML VIAL As Ordered ONE; -TRIAMCINOLONE ACETONIDE SUSP 40 MG/ML VIAL (J3301) As Ordered ONE
== END ==
LOC: M PAIN 10:45
PROVIDERS: ATTEND Nurse Practitioner Family
DX: M46.1 Sacroiliitis, not elsewhere classified (principal); Z79.899 Other long term (current) drug therapy; Z87.891 Personal history of nicotine dependence

== ENCOUNTER → 2019-05-04 | Outpatient (CLI) | payer OTHER ==
[~2019-05-04] MED LIST changes: +BUPIVACAINE HCL 0.25% 30 ML VIAL As Ordered ONE; +ISOVUE-M 300 61% 15ML VIAL (Q9967) As Ordered ONE; +LIDOCAINE 1% SDV INJ 30 ML VIAL As Ordered ONE; +TRIAMCINOLONE ACETONIDE SUSP 40 MG/ML VIAL (J3301) As Ordered ONE
--- NOTE | 2019-05-04 11:53 | REP ---
SI JOINT SERIES: Three views. HISTORY: Right SI joint injection for pain. FINDINGS: A sequence of three last image hold fluoroscopically obtained spot radiographs of the right SI joint document various needle position and contrast injections associated with injection procedure. 28 seconds of fluoroscopy time is reported. Electronically Signed by Faizan Sandy MD 05/04/2019 04:53 P
== END ==
LOC: M PAIN 09:15
PROVIDERS: ATTEND Anesthesiology
DX: M46.1 Sacroiliitis, not elsewhere classified (principal); F41.9 Anxiety disorder, unspecified; Z87.891 Personal history of nicotine dependence; M54.5 Low back pain; Z98.1 Arthrodesis status; Z90.49 Acquired absence of other specified parts of digestive tract; Z79.899 Other long term (current) drug therapy
CPT/HCPCS: G0260; J3301; Q9967

== ENCOUNTER → 2019-05-18 | Outpatient (CLI) | payer OTHER ==
[~2019-05-18] MED LIST changes: -BUPIVACAINE HCL 0.25% 30 ML VIAL As Ordered ONE; -ISOVUE-M 300 61% 15ML VIAL (Q9967) As Ordered ONE; -LIDOCAINE 1% SDV INJ 30 ML VIAL As Ordered ONE; -SERT-155 PO; +SERT50TA29 PO; -TRIAMCINOLONE ACETONIDE SUSP 40 MG/ML VIAL (J3301) As Ordered ONE
--- NOTE | 2019-05-20 00:31 | ECWPNPC ---
PATIENT NAME: SHANELL MENDIETA : 1965 GENDER: FEMALE VISIT DATE: 05/18/2019 DISCHARGE DATE: 05/18/19 1210 VISIT LOCKED DATE TIME: PHYSICIAN: JANE ARGUELLES RESOURCE: JANE ARGUELLES REASON FOR APPOINTMENT 1. W/C POST PROC HISTORY OF PRESENT ILLNESS HISTORY OF PRESENT ILLNESS: PAIN THE PATIENT DESCRIBES THE PAIN... 54-YEAR-OLD FEMALE IN FOR POST RIGHT SIJ. SHE RATES HER PAIN PREPROCEDURE AT A 10 OUT OF 10 AND POST PROCEDURE AT A 3 OUT OF 10. SHE RATES HER PAIN CURRENTLY AT A 3 OUT OF 10 AND FEELS THE PROCEDURE CONTINUES TO WORK TODAY. SHE DESCRIBES HER PAIN ACHING, AND SORE. HER PAIN BEGAN AFTER STEPPING OVER A PUDDLE IN [employer] ON 01-10-18.PAIN IS LOCATED IN RIGHT LOW BACK.HAS INTERMITTENT RIGHT LEG PAIN. PAIN IS AGGREVATED BY PROLONGED SITTING OR LAYING DOWN AND BENDING.PAIN IS RELIEVED SOMEWHAT WITH REST AND EXCERSISE. FALL RISK SCREENING: SCREENING :NO FALLS REPORTED IN THE LAST YEAR FALL RISK SCREENING: SCREENING : NO FALLS IN THE PAST YEAR. CURRENT MEDICATIONS TAKING ZOLOFT 50 MG TABLET 1.5 TABLET ORALLY BEFORE BEDTIME TAKING LIDOCAINE 5 % PATCH 1 PATCH TO SKIN REMOVE AFTER 12 HOURS EXTERNALLY ONCE A DAY NEEDED TAKING IBUPROFEN 800 MG TABLET 1 TABLET WITH FOOD OR MILK NEEDED ORALLY THREE TIMES A DAY MDD3 TAKING CYCLOBENZAPRINE HCL 10 MG TABLET 1 TABLET ORALLY TID PPRN TAKING AMBIEN 5 MG TABLET 1 TABLET AT BEDTIME ORALLY ONCE A DAY MEDICATION LIST REVIEWED AND RECONCILED WITH THE PATIENT PAST MEDICAL HISTORY ANXIETY TOBACCO USE LOW BACK PAIN RELATED TO WORKER'S COMP. 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 RUDI BAEZ CERVICAL SPINE FUSION IN 2011 ALLERGIES N.K.D.A. SURGICAL HISTORY C4-C5 FUSION 2012 APPENDECTOMY 1994 C SECTION 1986 FAMILY HISTORY FATHER: ALIVE, DIAGNOSED WITH DIABETES, UNSPECIFIED HEART DISEASE MOTHER: ALIVE 1 SON(S) , 2 DAUGHTER(S) - HEALTHY. PATERNAL AUNTS HAD BREAST CANCER\\\\NSON HAS RHEUMATOID ARTHRITIS, THYROID ISSUES\\\\NDAUGHTER THYROID DISEASE. SOCIAL HISTORY GENERAL: TOBACCO USE ARE YOU A:FORMER SMOKER HOW LONG HAS IT BEEN SINCE YOU LAST SMOKED?1-3 MONTHS QUIT SMOKING 2/7/19 VAPORYES HIV / HEP-C SCREENING HIV TEST OFFERED TO PATIENT:YES DECLINED DATE OFFERED:10/27/2018 TEST ACCEPTED:NO HEP-C TEST OFFERED TO PATIENT:NO DECLINED REASON:PATIENT DECLINED BROCHURE PROVIDED TO PATIENTNO OTHERS AT HOME: BOYFRIEND, BOYFRIEND. EDUCATION LEVEL OF EDUCATION:NOT FINISHED COLLEGE DIET: REGULAR, REGULAR. LANGUAGE LITHUANIAN, LITHUANIAN. DOMESTIC VIOLENCE DO YOU FEEL SAFE IN YOUR ENVIRONMENT?YES BMI CARE GOAL FOLLOW-UP ABOVE NORMAL BMI FOLLOW-UPDIETARY MANAGEMENT EDUCATION, GUIDANCE, AND COUNSELING, DIETARY NEEDS EDUCATION RECREATIONAL DRUG USE DRUG USE?NO EXERCISE: ACTIVE THROUGH WORK AND AT HOME.YOGA 5 DAYS WEEKLY, ACTIVE THROUGH WORK AND AT HOME.YOGA 5 DAYS WEEKLY. 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 NEEDED?NO LUNG CANCER SCREENING SMOKING STATUS:CURRENT SMOKER VAPOR PAIN CLINIC PFS, CLERGY, PUBLIC HEALTH REFERRALS WAS THE PROVIDER NOTIFIED OF ANY PERTINENT INFO?YES HAS THE PATIENT BEEN EDUCATED REGARDING HIS/HER PLAN OF CARE?YES HAS THE PATIENT BEEN EDUCATED REGARDING PAIN, THE RISK FOR PAIN, THE IMPORTANCE OF EFFECTIVE PAIN MANAGEMENT, AND THE PAIN ASSESSMENT PROCESS?YES LATEX QUESTIONNAIRE LATEX ALLERGY : HAVE YOU EVER DEVELOPED ANY TYPE OF REACTION AFTER HANDLING LATEX PRODUCTS SUCH RUBBER GLOVES, CONDOMS, DIAPHRAGMS, BALLOONS, SOCKS, OR UNDERWEAR?NO LATEX ALLERGY : HAVE YOU EVER DEVELOPED ANY TYPE OF REACTION DURING OR AFTER DENTAL APPOINTMENT, VAGINAL/RECTAL EXAMINATION, SURGICAL PROCEDURE, OR ANY OTHER EXPOSURE?NO DATE ASKED : 05/04/2019 LATEX RISK : HAVE YOU EVER HAD ANY DIFFICULTY BREATHING OR HIVES AFTER EATING OR HANDLING ANY FRUITS, OR VEGETABLES; SUCH KIWI, BANANAS, STONE FRUITS, OR CHESTNUTSNO LATEX RISK : DO YOU HAVE A PREVIOUS PERSONAL HISTORY OF MORE THAN NINE SURGERIES, SPINA BIFIDA, OR REPEATED CATHERIZATIONS? NO LATEX RISK : ARE YOU FREQUENTLY EXPOSED TO LATEX PRODUCTS IN YOUR OCCUPATION?NO CAFFEINE CAFFEINE USE?YES HOW OFTEN AND HOW MUCH? 2 CUPS COFFEE AND 1 SODA/DAY ADVANCE DIRECTIVE ADVANCE DIRECTIVE DISCUSSED WITH PATIENT:YES HCP - JUDY BROTHERS (DAUGHTER) BUDDHISM [id number] EPISCOPALIAN MARITAL STATUS: ., .. 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 SEXUAL HX HAD SEX IN THE LAST 12 MONTHS (VAGINAL, ORAL, OR ANAL)?YES WITHMEN ONLY USE PROTECTION?NO LMP:MENOPAUSE HAVE YOU EVER HAD AN STD?NO REVIEWED WITH PATIENT 05/14/18 1142 JSREVIEWED WITH PATIENT 07/15/18 1625 JS2 REVIEWED WITH PT. RONID WITH PATIENT 11/02/18 1002 JS REVIEWED WITH PATIENT 05/14/18 1142 JSREVIEWED WITH PATIENT 07/15/18 1625 JSREVIEWED WITH FRANCOISEN 05/18/19 1141 NL08/31/18 REVIEWED WITH PTAlice TAMAYOD WITH PATIENT 11/02/18 1002 JS. HOSPITALIZATION/MAJOR DIAGNOSTIC PROCEDURE CHILDBIRTH X2 X 1 MENTAL BREAKDOWN 11/2018 REVIEW OF SYSTEMS REVIEWED BY: PROVIDER: EDI ARREDONDO-C . CONSTITUTIONAL: ANY CHANGE IN YOUR MEDICAL CONDITION? NO . CHILLS NO . FEVER NO . INFECTION: DO YOU HAVE NEW INFECTIONS? NO . DO YOU HAVE HISTORY OF MRSA? NO . MUSCULOSKELETAL: ANY NEW PATTERNS OF PAIN OR NUMBNESS? YES- STATES THAT AFTER THE PROCEDURE SHE STATES THAT SHE WAS VERY SORE FOR A COUPLE OF DAYS, STTES SHE IS FEELING AT LEAST 50-80 % RELIEF FROM PROCEDURE . GASTROENTEROLOGY: ANY NEW CHANGE IN BOWEL CONTROL? NO . GENITOURINARY: ANY NEW CHANGE IN BLADDER CONTROL? YES- STATES IT IS NORMAL FOR HER . IS THERE A CHANCE YOU COULD BE ? NO . HEMATOLOGY/LYMPH: DO YOU TAKE ANY BLOOD THINNERS? (FOR EXAMPLE- COUMADIN, PLAVIX, AGGRENOX, PLATEL, PRADAXA, OR XARELTO) NO . WHEN WAS YOUR LAST DOSE? DATE: TIME: . NEUROLOGY: HAVE YOU FALLEN IN THE PAST 12 MONTHS? NO . ANY NEW EXTREMITY NUMBNESS OR WEAKNESS? NO . CARDIOLOGY: DO YOU HAVE A PACEMAKER OR DEFIBRILLATOR? NO . RESPIRATORY: HAVE YOU BEEN SICK IN THE PAST WEEK? NO . FEVER NO . FLU LIKE SYMPTOMS? NO . COUGH NO . INTEGUMENTARY: DO YOU HAVE ANY RASHES OR OPEN SORES? NO . ALLERGIC/IMMUNO: ARE YOU ALLERGIC TO IV DYE? NO . ANY NEW ALLERGIES? NO . PSYCHIATRIC: DO YOU HAVE THOUGHTS OF HURTING YOURSELF OR SOMEONE ELSE? NO . ARE YOU ABUSED, NEGLECTED, OR IN AN UNSAFE ENVIRONMENT? NO . ENDOCRINOLOGY: ARE YOU DIABETIC? NO . OTHER: DO YOU NEED ANY PRESCRIPTIONS? NO . IF YES, PLEASE LIST: ____ . ANY NEW PROBLEMS WITH YOUR MEDICATIONS? NO . WHEN DID YOU LAST EAT? ____ . WHEN DID YOU LAST DRINK? ____ . WHAT DID YOU LAST DRINK? ____ . NAME OF PERSON DRIVING YOU HOME? ____ . DO YOU HAVE ANY OTHER QUESTIONS OR CONCERNS NO . VITAL SIGNS WT 136.4 LBS, HT 62 IN, BMI 24.95 INDEX, BP 128/85 MM HG, HR 82 /MIN, RR 18 /MIN, TEMP 97.2 F, OXYGEN SAT % 100%, SAFE IN ENV? (Y/N) YES, NA INITIALS SC 11:42, REVIEWED BY: VISHAL. EXAMINATION GENERAL EXAMINATION: GENERALNO ACUTE DISTRESS, WELL NOURISHED AND HYDRATED. PSYCHAPPROPRIATE MOOD AND AFFECT . LUNGS:CLEAR TO AUSCULTATION BILATERALLY, NO WHEEZES, RHONCHI, RALES. HEART:NO MURMURS, REGULAR RATE AND RHYTHM. ASSESSMENTS SACROILIITIS, NOT ELSEWHERE CLASSIFIED - M46.1 (PRIMARY) TREATMENT SACROILIITIS, NOT ELSEWHERE CLASSIFIED CLINICAL NOTES: 54-YEAR-OLD FEMALE IN FOR POST SIJ FOLLOW-UP. GIVEN PRESENTING SYMPTOMS AND RESULTS OF PHYSICAL EXAMINATION RECOMMENDED FOLLOW-UP IN 2 MONTHS. PATIENT HAS EXPRESSED UNDERSTANDING OF AND WAS IN AGREEMENT WITH TREATMENT PLAN. GIVEN TIME TO ASK QUESTIONS AND EXPRESS CONCERNS. PROCEDURES PN WORKMANS' COMP OPINION IN YOUR OPINION, WAS THE INCIDENT THAT THE PATIENT DESCRIBED THE COMPETENT MEDICAL CAUSE OF THIS INJURY/ILLNESS? YES ARE THE PATIENT'S COMPLAINTS CONSISTENT WITH HIS/HER HISTORY OF THE INJURY/ILLNESS? YES IS THE PATIENT'S HISTORY OF THE INJURY/ILLNESS CONSISTENT WITH YOUR OBJECTIVE FINDING? YES WHAT IS THE PERCENTAGE OF TEMPORARY IMPAIRMENT? MODERATE TO MARKED = 66.7% IS THE PATIENT WORKING? YES DOCTOR ON SITE: DONNA MARISCAL MD PROCEDURE CODES FA211 ESTABILISHED PATIENT [facility] FACILITY CHARGE DISPOSITION & COMMUNICATION FOLLOW UP 2 MONTHS (REASON: CHRONIC PAIN ) ELECTRONICALLY SIGNED BY MARIA ELENA KAY ON 05/19/2019 AT 04:21 PM EDT DISCLAIMER : THIS IS A VISIT SUMMARY EXTRACTED FROM THE [employer] CHART. IT IS NOT A COPY OF THE [employer] PROGRESS NOTE. MARIANN
== END ==
LOC: M PAIN 11:15
PROVIDERS: ATTEND Family Medicine
DX: M46.1 Sacroiliitis, not elsewhere classified (principal); Z86.59 Personal history of other mental and behavioral disorders; Z87.891 Personal history of nicotine dependence; Z79.899 Other long term (current) drug therapy

== ENCOUNTER → 2019-08-06 | Outpatient (CLI) | payer OTHER ==
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
== END ==
LOC: M PAIN 09:00
PROVIDERS: ATTEND Family Medicine
DX: M46.1 Sacroiliitis, not elsewhere classified (principal)

== ENCOUNTER → 2020-03-06 | Outpatient (REF) | payer OTHER ==
[~2020-03-06] MED LIST changes: +CYCL-707 PO; -CYCL10TA PO
== END ==
LOC: M SFHCPLAZ 09:52
PROVIDERS: ATTEND Physician Assistant Medical
DX: G62.9 Polyneuropathy, unspecified (principal)